=== PATIENT | female | born 1965 | race Caucasian/White ===

== ENCOUNTER 2016-12-31 10:56 | Emergency (ER) | payer MEDICARE, OTHER ==
[2016-12-31 11:08] VITALS: RESP 18
--- NOTE | 2016-12-31 11:20 | ED ---
General Adult HPI - General Chief complaint: Abdominal Pain Stated complaint: Preg? Time Seen by Provider: 12/31/16 11:05 Source: patient, RN notes reviewed Mode of arrival: ambulatory Limitations: no limitations - History of Present Illness Initial comments: this is a 51-year-old female who presents emergency Department because some discharge after coughing yesterday. Patient states about 9:00 last night out of the blue she just had a coughing fit in one the coughing got really bad she felt some fluid that she thought might have come out of her vagina. Patient states she checked in the fluid was yellow in color there was no blood and it hasn't happened since. Patient also states she has not coughed since. Patient states she has no difficulty breathing no chest pain. Patient states it was a random coughing fit and she's not sure why it occurred. Patient is here today because she is concerned about what they yellow fluid might have been. Patient doesn't think it was urine but she's not sure. Patient denies any abdominal pain. Patient denies any dysuria hematuria urinary frequency. Patient denies any recent fever or chills. Patient denies any back pain. - Related Data Home Medications Medication Instructions Recorded Confirmed ARIPiprazole [Abilify Maintena] 300 mg IM Q28D 12/31/16 12/31/16 Fenofibrate Nanocrystallized 145 mg PO DAILY 12/31/16 12/31/16 [Fenofibrate] Mirtazapine [Remeron] 15 mg PO HS 12/31/16 12/31/16 Simvastatin [Zocor] 20 mg PO HS 12/31/16 12/31/16 Trihexyphenidyl HCl 5 mg PO DAILY 12/31/16 12/31/16 Allergies Allergy/AdvReac Type Severity Reaction Status Date / Time No Known Allergies Allergy Verified 12/31/16 11:46 Review of Systems ROS Statement: Those systems with pertinent positive or pertinent negative responses have been documented in the HPI. ROS Other: All systems not noted in ROS Statement are negative. Past Medical History Past Medical History: Hyperlipidemia Additional Past Medical History / Comment(s): tremors History of Any Multi-Drug Resistant Organisms: None Reported Past Surgical History: Cholecystectomy, Orthopedic Surgery, Tubal Ligation Additional Past Surgical History / Comment(s): knee Past Psychological History: Schizophrenia Smoking Status: Current every day smoker Past Alcohol Use History: None Reported Past Drug Use History: None Reported General Exam - General Exam Comments Initial Comments: GENERAL: Patient is well-developed and well-nourished. Patient is nontoxic and well- hydrated and is in no acute distress. ENT: Neck is soft and supple. No significant lymphadenopathy is noted. Oropharynx is clear. Moist mucous membranes. Neck has full range of motion without eliciting any pain. EYES: The sclera were anicteric and conjunctiva were pink and moist. Extraocular movements were intact and pupils were equal round and reactive to light. Eyelids were unremarkable. PULMONARY: Unlabored respirations. Good breath sounds bilaterally. No audible rales rhonchi or wheezing was noted. CARDIOVASCULAR: There is a regular rate and rhythm without any murmurs gallops or rubs. ABDOMEN: Soft and nontender with normal bowel sounds. No palpable organomegaly was noted. There is no palpable pulsatile mass. Genitalia Speculum exam as well as bimanual exam were both normal SKIN: Skin is clear with no lesions or rashes and otherwise unremarkable. NEUROLOGIC: Patient is alert and oriented x3. Cranial nerves II through XII are grossly intact. Motor and sensory are also intact. Normal speech, volume and content. Symmetrical smile. MUSCULOSKELETAL: Normal extremities with adequate strength and full range of motion. No lower extremity swelling or edema. No calf tenderness. LYMPHATICS: No significant lymphadenopathy is noted PSYCHIATRIC: Normal psychiatric evaluation. Normal interpersonal interactions appears functionally intact in deals appropriately with others. No signs of depression. No signs of anxiety. Limitations: no limitations Course Vital Signs 12/31/16 11:03 Temperature 97.9 F Pulse Rate 92 Respiratory 18 Rate Blood Pressure 136/79 O2 Sat by Pulse 95 Oximetry Medical Decision Making - Medical Decision Making I discussed the case with the patient and she did agree that it could've possibly been urine from her bladder but it shocked her so much that her first shot was vaginal discharge. She states she's never happened before. - Lab Data Lab Results 12/31/16 12/31/16 Range/Units 11:35 11:35 Urine Color Yellow Urine Appearance Cloudy H (Clear) Urine pH 5.5 (5.0-8.0) Ur Specific [place] 1.010 (1.001-1.035) Urine Protein Trace H (Negative) Urine Glucose (UA) 4+ H (Negative) Urine Ketones Negative (Negative) Urine Blood Negative (Negative) Urine Nitrite Negative (Negative) Urine Bilirubin Negative (Negative) Urine Urobilinogen 6.0 (<2.0) mg/dL Ur Leukocyte Esterase Moderate H (Negative) Urine WBC 15 H (0-5) /hpf Ur Squamous Epith Cells 14 H (0-4) /hpf Urine Bacteria Rare H (None) /hpf Hyaline Casts 1 (0-2) /lpf Urine HCG, Qual Not Detected (Not Detectd) Disposition Clinical Impression: Urinary incontinence, Hyperglycemia Disposition: HOME SELF-CARE Instructions: Urinary Incontinence (ED), Hyperglycemia, Non-Diabetic (ED) Additional Instructions: Patient is to follow-up as soon as possible with her physician for her elevated glucose. Referrals: Qi Tovar MD [Primary Care Provider] - 1-2 days Time of Disposition: 12:12
[2016-12-31 11:46] LABS: Appearance,Urine Cloudy (Clear); Bacteria,Urine Rare /hpf; Bilirubin,Urine Negative (Negative); Glucose,Urine (UA) 4+ (Negative); Ketones,Urine Negative (Negative); Leukocyte Esterase,Urine Moderate (Negative); Nitrite,Urine Negative (Negative); PH, Urine 5.5 (5.0-8.0); Particle Count 2180; Protein,Urine Trace (Negative); Squamous Epithelial Cell,Urine 14 /hpf (0-4); UA Billing (MACRO vs. MICRO) MICRO; WBC,Urine 15 /hpf (0-5)
[2016-12-31 12:30] LABS: Glucose,Whole Blood 246 mg/dL (75-99)
[2016-12-31 12:33] VITALS: BP 139/73; PULSE 83; TEMP 97.7
== END 2016-12-31 12:38 | disposition home or self-care (01) ==
LOC: EC 10:56
DX: R32 Unspecified urinary incontinence (principal); R73.9 Hyperglycemia, unspecified; F20.9 Schizophrenia, unspecified; E78.5 Hyperlipidemia, unspecified; F17.200 Nicotine dependence, unspecified, uncomplicated; Z90.49 Acquired absence of other specified parts of digestive tract; Z79.899 Other long term (current) drug therapy
CPT/HCPCS: 36415; 81001; 81025; 99284

== ENCOUNTER → 2019-11-11 | Outpatient (CLI) | payer MEDICARE, OTHER ==
[2019-11-11 20:22] LABS: African American GFR (CKD) 85.8 (60.0-200.0); Albumin 4.4 g/dL (3.80-4.90); Albumin/Globulin Ratio 1.33 (1.60-3.17); Anion Gap 3.6 mmol/L (4.00-12.00); BUN/Creat Ratio 13.33 Ratio (12.00-20.00); Calcium 9.8 mg/dL (8.7-10.3); Carbon Dioxide 27.4 mmol/L (21.6-31.8); Chol/HDL Ratio 5.85; Globulin 3.3 g/dL (1.6-3.3); LDL Cholesterol,Calculated 70.6 mg/dL (0.0-131.0); Potassium 4.5 mmol/L (3.5-5.5); Total Protein 7.7 g/dL (6.2-8.2); VLDL Calculation 55.4 mg/dL (5.00-40.00)
[2019-11-11 20:51] LABS: Hemoglobin A1C 5.2 % (4.0-6.0)
[2019-11-13 04:53] LABS: Hepatitis A Antibody IgM Non-Reactive (Non-Reactive); Hepatitis B Core IgM Non-Reactive (Non-Reactive); Hepatitis B Surface Antigen Non-Reactive (Non-Reactive); Hepatitis C IgG Antibody Non-Reactive (Non-Reactive)
== END | disposition home or self-care (01) ==
LOC: LABWHC1 11:35
PROVIDERS: ATTEND Internal Medicine
DX: E11.9 Type 2 diabetes mellitus without complications (principal); E78.5 Hyperlipidemia, unspecified
CPT/HCPCS: 36415; 80053; 80061; 80074; 83036

== ENCOUNTER → 2020-10-11 | Outpatient (CLI) | payer MEDICARE, OTHER ==
--- NOTE | 2020-10-11 12:12 | MM ---
Reason for exam: clinical finding. Indicated problem(s): lump or thickening in the left breast. Physical Findings: Nurse Summary: 3cm nodule in the left breast at 3 o'clock (nurse mj). MG 3D Diag Mammo W/Cad WADE Bilateral CC and MLO view(s) were taken. The breast tissue is heterogeneously dense. This may lower the sensitivity of mammography. Increased density upper outer quadrant right breast. Pleomorphic calcificaitons and spiculated mass 1.6cm and 5.4cm from nipple. These results were verbally communicated with the patient and result sheet given to the patient on 10/11/20. ASSESSMENT: Incomplete: need additional imaging evaluation, BI-RAD 0 RECOMMENDATION: Ultrasound of both breasts. Manage patient on a clinical basis.
--- NOTE | 2020-10-11 12:16 | USB ---
Reason for exam: additional evaluation requested from abnormal screening. US Breast BILAT Right complete breast ultrasound includes all four quadrants, the retroareolar region and axilla. Finding demonstrates a 0.6 x 0.4 x 0.6cm cystic cluster at 2 o'clock and a 0.7 x 0.6 x 0.6cm lesion with duct at 7-8 o'clock for which a biopsy is recommended. Left complete breast ultrasound includes all four quadrants, the retroareolar region and axilla. Finding demonstrates a 2.5 x 1.6 x 2.6cm irregular, hypoehcoic lesion at 3 o'clock, debris with duct at the posterior nipple and a 2.1 x 1.4 x 1.9cm lymph node at the axilla. Biopsy recommended. These results were verbally communicated with the patient and result sheet given to the patient on 10/11/20. ASSESSMENT: Highly suggestive of malignancy, BI-RAD 5 Suspicious, BI-RAD 4 abnormality in the right breast. Left breast finding is highly suggestive of malignancy, BI-RAD 5. RECOMMENDATION: Ultrasound core biopsy of both breasts. Called Dr. French's office with mammographic findings and has scheduled an appointment for the patient for 10/19/20 at 7:[address] Eli. Biopsy scheduled for 10/23/20 at 1:00. PRELIMINARY REPORT CALLED AND FAXED TO DR. ELI ON 10/11/20.
== END | disposition home or self-care (01) ==
LOC: RADMAMWWP 08:04
PROVIDERS: ATTEND Internal Medicine
DX: N63.20 Unspecified lump in the left breast, unspecified quadrant (principal); N63.11 Unspecified lump in the right breast, upper outer quadrant
CPT/HCPCS: 77066; 76641; G0279; 77062

== ENCOUNTER → 2020-10-19 | Outpatient (CLI) | payer MEDICARE, OTHER ==
[2020-10-19 07:18] VITALS: BP 133/86; PULSE 72; RESP 18; TEMP 98.2
--- NOTE | 2020-10-19 07:45 | P.GSHP ---
History of Present Illness H&P Date: 10/19/20 Chief Complaint: Bilateral radiographic abnormality of the breast Nancy is a 54-year-old white female seen in consultation for Dr. Moore regarding bilateral radiographic abnormality of the breast. She states she felt a mass in her left breast approximately 1 month ago. It was not painful. It has not changed in size. She had a bilateral mammogram performed on 5520. This showed an area of increased density upper quadrant right breast as well as pleomorphic calcifications in the spiculated mass in the left breast approximately 5.4 cm from the nipple. Bilateral breast ultrasounds were performed. Right breast ultrasound 0.7 x 0.6 cm lesion at the 7 to 8 o'clock position for which a biopsy was recommended Left breast 2.5 x 1.6 cm irregular lesion at 3:00 for which ultrasound-guided core biopsy was recommended as well as enlarged lymph nodes for which biopsy is recommended. She has never had any procedures on her breast before. She does not complain of any trauma or infection in her breast. Caffeine: one pop/day nicotine: 1 PPD/30 years chocolate: occasional Family history: none Hormonal history: Menarche: 14 , breast fed: no, age at first : 24 no periods for 7 years hormones: none BCP: none Surgical history: Right knee Gallbladder Medical history: Schizophrenia Diabetes/on metformin High cholesterol Social History: Nicotine: One pack per day for 30 years Alcohol: Negative Drugs: Negative - Constitutional Constitutional: Denies chills, Denies fever - EENT Eyes: denies blurred vision, denies pain Ears: deny: decreased hearing, tinnitus Ears, nose, mouth and throat: Denies headache, Denies sore throat - Breasts Breasts: bilateral: as per HPI - Cardiovascular Cardiovascular: Denies chest pain, Denies shortness of breath - Respiratory Comment: smoker Respiratory: Denies cough, Denies 7 - Gastrointestinal Gastrointestinal: Denies abdominal pain, Denies diarrhea, Denies nausea, Denies vomiting - Genitourinary (Female) Genitourinary: Denies dysuria, Denies hematuria - Menstruation Menstruation: Reports postmenopausal - Musculoskeletal Musculoskeletal: Denies myalgias - Integumentary Integumentary: Denies pruritus, Denies rash - Neurological Neurological: Denies numbness, Denies weakness - Psychiatric Comment: Schizophrenia Psychiatric: Denies anxiety, Denies depression - Endocrine Comment: diabetes Endocrine: Denies fatigue, Denies weight change - Hematologic/Lymphatic Comment: none - Allergic/Immunologic Allergic/Immunologic: Reports as per HPI Past Medical History Past Medical History: Diabetes Mellitus, Hyperlipidemia Additional Past Medical History / Comment(s): tremors History of Any Multi-Drug Resistant Organisms: None Reported Past Surgical History: Cholecystectomy, Orthopedic Surgery, Tubal Ligation Additional Past Surgical History / Comment(s): knee Past Psychological History: Anxiety, Schizophrenia Past Alcohol Use History: None Reported Past Drug Use History: None Reported Medications and Allergies Home Medications Medication Instructions Recorded Confirmed Type ARIPiprazole [Abilify Maintena] 300 mg IM Q28D 12/31/16 10/19/20 History Fenofibrate Nanocrystallized 145 mg PO DAILY 12/31/16 10/19/20 History [Fenofibrate] Simvastatin [Zocor] 20 mg PO HS 12/31/16 10/19/20 History Trihexyphenidyl HCl 2 mg PO BID 12/31/16 10/19/20 History metFORMIN HCL 500 mg PO DAILY 10/16/20 10/19/20 History traZODone HCL 100 mg PO HS 10/16/20 10/19/20 History Allergies Allergy/AdvReac Type Severity Reaction Status Date / Time No Known Allergies Allergy Verified 10/19/20 07:15 Surgical - Exam BMI 34.4 - General no distress - Eyes normal ocular movement - ENT normal pinna, normal nares - Neck no masses, trachea midline - Respiratory normal expansion, normal respiratory effort, clear to auscultation - Cardiovascular Rhythm: regular Heart Sounds: normal: S1, S2 - Abdomen Abdomen: soft, non tender, no guarding, no rigid, no rebound - Integumentary normal turgor - Neurologic no disoriented, no combative - Musculoskeletal normal gait - Psychiatric oriented to time, oriented to person, oriented to place, speech is normal, memory intact breast exam: BRA: 38B inspection: Left nipple slightly retracted, grade 2 ptosis Palpation: Right breast: Multi-positional exam very dense breast with no dominant masses or nodules of concern, fibrocystic changes Right axilla: No adenopathy of concern Left breast: Multi-positional exam very dense breast approximately 3 x 3 cm mass at the 3 o'clock position fibrocystic changes Left axilla: Positive adenopathy which is mobile Patient did receive COVID vaccination in left arm approximately 2 weeks ago ( only one shot given) Results Mammogram and ultrasound reviewed in person and discussed with Dr. Santana from radiology Assessment and Plan Assessment: Impression: 1. Bilateral mammographic abnormality of the breast/mobile mass left breast and axillary adenopathy left 2. Schizophrenia 3. Diabetes 4. High cholesterol 5. One pack per day smoker for approximately 30 years 6. BMI 34.4 Plan: 1. Ultrasound-guided core biopsy left breast mass, left axillary node, right breast Mass. 2. Encouraged stop smoking 3. Follow-up after ultrasound-guided core biopsy Cc: Dr. French Patient and benefits of the ultrasound core biopsies were discussed with the patient. Risks include but are not limited to bleeding, infection, reaction to the anesthetic. Additionally if the findings were discordant it could require resection in the operating room. The left breast lesion will be removed no matter what the findings on the ultrasound core biopsy are. However, if this is positive she may benefit from neoadjuvant chemotherapy.
== END ==
LOC: WWCWWP 07:03
PROVIDERS: ATTEND Surgery
DX: N63.20 Unspecified lump in the left breast, unspecified quadrant (principal); E78.00 Pure hypercholesterolemia, unspecified; E11.9 Type 2 diabetes mellitus without complications; F17.210 Nicotine dependence, cigarettes, uncomplicated; E78.5 Hyperlipidemia, unspecified; F41.9 Anxiety disorder, unspecified; F20.9 Schizophrenia, unspecified; Z68.34 Body mass index [BMI] 34.0-34.9, adult; Z79.84 Long term (current) use of oral hypoglycemic drugs

== ENCOUNTER → 2020-10-23 | Day surgery (SDC) | payer MEDICARE, OTHER ==
[2020-10-23 12:07] VITALS: RESP 16; TEMP 98.1
[2020-10-23 14:34] VITALS: BP 120/74; PULSE 80
--- NOTE | 2020-10-24 10:22 | USB ---
US Discontinued Breast Bx RT EXAMINATION TYPE: US biopsy breast VAD LT DATE OF EXAM: 10/23/2020 CLINICAL HISTORY: R92.8 Abnormal Imaging. Abnormal mass at 3:00, in zone a and enlarged abnormal-appearing left axillary lymph node TECHNIQUE: Ultrasound guided core biopsy of left axilla and left breast. COMPARISON: NONE FINDINGS: The procedure of ultrasound guided core biopsy was explained to the patient. Benefits, alternatives, and risks were discussed. An informed consent was then obtained. The patient was placed in supine positioning for imaging and for the procedure. The overlying skin was prepped and draped in usual sterile fashion. Lidocaine buffered with bicarbonate was used as anesthetic into the skin and subcutaneous tissue up to area of concern in the left breast. Skin anatoly was made with surgical scalpel. Under ultrasound guidance, a 12-gauge vacuum assisted core biopsy device was used to obtain 3 core biopsy samples. Following this, a biopsy clip was left breast lesion. Another enlarged abnormal-appearing lymph node was located in the left axilla. Under ultrasound guidance a Temno device was used to obtain 3 core biopsy samples. The patient tolerated the procedures well without any immediate complication. The patient was kept in the radiology department for short stay after the procedure and then discharged home in stable condition. Post procedural true lateral and CC of the left breast were obtained with biopsy marker clip at appropriate position at 3:00 in zone A. The left axillary clip is not visualized. The retroareolar biopsies of each breast were canceled. There are dilated retroareolar ducts with debris. No color-flow is seen within the ducts. Due to high likelihood of breast MRI following this biopsy, biopsies of these areas were not obtained. IMPRESSION: 1. Successful, uncomplicated ultrasound guided core left breast biopsy and left axillary node biopsy. Postbiopsy mammogram shows a left biopsy marker clip in appropriate position. Left axillary clip is not visualized. Full pathology results to follow. 2. Bilateral retroareolar ductal dilatation with debris and/or hemorrhage. No color flow is seen. These areas were not biopsied due to high likelihood of breast MRI to follow. Pathology Results: Malignant A. LEFT BREAST, 3:00, ULTRASOUND GUIDED CORE BIOPSY: Invasive high grade ductal carcinoma (Grade 3) and focal high grade DCIS. See Surgical Pathology Cancer Case Summary and Comment. B. LEFT AXILLA, CORE BIOPSY: Invasive high grade ductal carcinoma (Grade 3). See Surgical Pathology Cancer Case Summary and Comment. Recommendation Surgical consult of the left breast. MTDD
--- NOTE | 2020-10-24 10:23 | MM ---
Reason for exam: additional evaluation requested from abnormal screening. Last mammogram was performed less than 1 month ago. History: US discontinued breast bx RT of the right breast, October 23, 2020. MG Diagnostic Mammo LT Wo CAD CC and LM view(s) were taken of the left breast. Prior study comparison: October 11, 2020, bilateral MG 3d diag mammo w/cad WADE. ASSESSMENT: Post procedure mammogram for marker placement RECOMMENDATION: Surgical consult of the left breast. MEIR
== END ==
LOC: RADUSWWP 11:45
PROVIDERS: ATTEND Surgery
DX: C50.912 Malignant neoplasm of unspecified site of left female breast (principal); Z17.0 Estrogen receptor positive status [ER+]
CPT/HCPCS: 88305; 88342; 88341; 77065; 38505; 19083; 76641; A4648; J2001; 19084

== ENCOUNTER → 2020-11-02 | Outpatient (CLI) | payer MEDICARE, OTHER ==
[2020-11-02 12:18] VITALS: BP 136/79; PULSE 66; RESP 18; TEMP 97.9
--- NOTE | 2020-11-02 13:04 | P.PN ---
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 Both revealed invasive high- grade ductal carcinoma. A third area was recommended for biopsy in the right breast which was canceled by radiology. Instead it was recommended that she undergo a breast MRI. I reviewed the patient's pathology with the patient. She is a T2 N1 M0 ER+UT+ HER-2-G 3 tumor which is a stage IIB. She would like to have genetic testing done. Additionally the tumor will be sent for Oncotype. This is very possibly going to be high as this is a high-grade tumor with a positive lymph node. She had no complaints related to the biopsy. We have recommended the followin. genetic testing 2. Oncotype evaluation of the tumor although with a high-grade tumor and positive lymph node 3. Presentation of case at tumor board 4. MRI as 2 lesions in the left were sampled but the one in the right was not sampled and recommended by radiology Risks and benefits of different surgical procedures were discussed with the patient. Final recommendation will be when all of the information is available. Encounter: 40 minutes, time spent in review of medical records and counseling. CC: Dr. French Objective - Vital Signs Vital signs: Vital Signs Temp 97.9 F 11/02/20 12:12 Pulse 66 11/02/20 12:12 Resp 18 11/02/20 12:12 BP 136/79 11/02/20 12:12 Pulse Ox 97 11/02/20 12:12 Intake & Output 11/01/20 11/02/20 11/02/20 18:59 06:59 18:59 Weight 94.347 kg
== END ==
LOC: WWCWWP 11:39
PROVIDERS: ATTEND Surgery
DX: C50.912 Malignant neoplasm of unspecified site of left female breast (principal); F17.200 Nicotine dependence, unspecified, uncomplicated

== ENCOUNTER → 2020-11-17 | Outpatient (CLI) | payer MEDICARE, OTHER ==
--- NOTE | 2020-11-20 05:36 | PE ---
EXAMINATION TYPE: PET CT fusion skull to thigh DATE OF EXAM: 11/17/2020 COMPARISON: Bilateral breast ultrasound October 11, 2020 HISTORY: Left-sided breast cancer diagnosed on biopsy october 23. TECHNIQUE: Following the intravenous administration of 12.91 mCi of F-18 FDG, whole body images are performed from the skull base to the midthigh. Images are reviewed on the computer in the coronal, a xial, and sagittal planes. Reconstructed rotating images are created on independent workstation and reviewed on the computer. A localization and attenuation correction CT is performed in conjunction with the PET scan. Blood glucose level equals 112. SCAN: Initial Scan FINDINGS: SKULL BASE AND NECK: No areas of abnormal hypermetabolic uptake. CHEST, MEDIASTINUM, AND HILAR REGION: Corresponding to ultrasound there is a 2.6 x 2.1 cm hypermetabo lic mass lateral aspect left breast axial image 107, max SUV is 4.84. Corresponding to ultrasound there is enlarged hypermetabolic 2.2 x 1.3 cm inferior left axillary node axial image 88, max SUV is 3.67. No areas of abnormal metabolic uptake in the right breast. There are 2 prominent subcentimeter hyperm etabolic right axillary lymph nodes, largest measures 1.4 x 1.4 cm axial image 77, max SUV is 3.22. No additional areas of abnormal hypermetabolic uptake. ABDOMEN AND PELVIS: Normal excretion. Nonspecific distal bowel uptake. Suspected misregistration at l evel of cervix. OSSEOUS STRUCTURES: No areas of abnormal hypermetabolic uptake. OTHER CT: Mild cardiomegaly. Liver diffusely low-density consistent with fatty infiltration. Cholecystectomy clips. Anteverted uterus. There is 3.2 cm low dense right ovarian mass probable thin-walled cyst. There is a larger 5.7 cm hyperdense left pelvic lesion that is ametabolic. Advise pelvic ultrasound to further evaluate and characterize. IMPRESSION: 1. Redemonstration of biopsy proven malignancy in left breast and axilla. Nonspecific right axillary lymph nodes. No additional metastatic disease clearly seen. 2. There is 5.7 cm left adnexal or ovarian hyperdense lesion, nonspecific. Advise pelvic ultrasound f ollow-up to further evaluate.
== END | disposition home or self-care (01) ==
LOC: RADPETMAIN 17:00
PROVIDERS: ATTEND Surgery
DX: C50.912 Malignant neoplasm of unspecified site of left female breast (principal)
CPT/HCPCS: 78815; A9552

== ENCOUNTER → 2020-11-22 | Outpatient (CLI) | payer MEDICARE, OTHER ==
--- NOTE | 2020-11-22 11:01 | ECHOF ---
Referral Reason:Z01.818 pre chemo, N85.8 ovarian cyst MEASUREMENTS -------- HEIGHT: 162.6 cm WEIGHT: 96.2 kg BP: RVIDd: 3.3 cm (< 3.3) IVSd: 1.5 cm (0.6 - 1.1) LVIDd: 3.9 cm (3.9 - 5.3) LVPWd: 1.3 cm (0.6 - 1.1) IVSs: 1.7 cm LVIDs: 2.6 cm LVPWs: 1.8 cm LAESV Index (A-L): 19.88 ml/m Ao Diam: 2.7 cm (2.0 - 3.7) AV Cusp: 1.8 cm (1.5 - 2.6) LA Diam: 3.6 cm (2.7 - 3.8) MV EXCURSION: 18.739 mm (> 18.000) MV EF SLOPE: 43 mm/s (70 - 150) EPSS: 0.4 cm MV E Wallace: 0.76 m/s MV DecT: 245 ms MV A Wallace: 0.97 m/s MV E/A Ratio: 0.78 RAP: 5.00 mmHg RVSP: 32.61 mmHg FINDINGS -------- Sinus rhythm. This was a technically adequate study. The left ventricular size is normal. There is moderate concentric left ventricular hypertrophy. O verall left ventricular systolic function is normal with, an EF between 55 - 60 %. The diastolic fi lling pattern is normal for the age of the patient 14.35. The right ventricle is mildly enlarged. The left atrial size is normal. The right atrial size is normal. Interatrial and interventricular septum intact. The aortic valve is trileaflet, and appears structurally normal. No aortic stenosis or regurgitation. The mitral valve is normal. No mitral regurgitation. Mild tricuspid regurgitation present. Right ventricular systolic pressure is normal at < 35 mmHg. The right ventricular systolic pressure, as measured by Doppler, is 32.61mmHg. Trace/mild (physiologic) pulmonic regurgitation. The aortic root size is normal. IVC Not well visulized. There is no pericardial effusion. CONCLUSIONS -------- 1. There is moderate concentric left ventricular hypertrophy. 2. Overall left ventricular systolic function is normal with, an EF between 55 - 60 %. 3. The right ventricle is mildly enlarged. 4. The left atrial size is normal. 5. The aortic valve is trileaflet, and appears structurally normal. No aortic stenosis or regurgitati on. 6. Mild tricuspid regurgitation present. 7. Trace/mild (physiologic) pulmonic regurgitation. 8. There is no pericardial effusion. CONTRACT CONSULTANT: Jessie Ferrer RDCS
== END | disposition home or self-care (01) ==
LOC: RADECHMAIN 08:58
PROVIDERS: ATTEND Internal Medicine Hematology & Oncology
DX: Z01.810 Encounter for preprocedural cardiovascular examination (principal); I07.1 Rheumatic tricuspid insufficiency
CPT/HCPCS: 93306

== ENCOUNTER → 2020-11-23 | Outpatient (CLI) | payer MEDICARE, OTHER | END | disposition home or self-care (01) | LOC: RADMRIMAIN 08:56 | PROVIDERS: ATTEND Surgery | DX: Z53.9 Procedure and treatment not carried out, unspecified reason (principal) ==

== ENCOUNTER → 2020-12-01 | Outpatient (CLI) | payer MEDICARE, OTHER ==
--- NOTE | 2020-12-01 15:27 | US ---
EXAMINATION TYPE: US pelvis complete transvag DATE OF EXAM: 12/01/2020 COMPARISON: PET scan 11/17/2020 CLINICAL HISTORY: N85.8 OVARIAN CYST. TECHNIQUE: Transvaginal (TV) and Transabdominal (TA) . Date of LMP: patient states no cycles for one year. EXAM MEASUREMENTS: Uterus: 9.7 x 3.8 x 4.6 cm Endometrial Stripe: 0.4 cm Right Ovary: 4.9 x 3.1 x 3.1 cm Left Ovary: 6.5 x 2.5 x 3.8 cm 1. Uterus: Anteverted heterogeneous echotexture 2. Endometrium: wnl 3. Right Ovary: 3.3 x 3.2 x 3.2 cm cyst 4. Left Ovary: 5.4 x 3.1 x 3.6 cm cyst Spectral, color and waveform doppler imaging shows good arterial and venous flow within the ovaries ; there is no evidence for ovarian torsion. 5. Bilateral Adnexa: wnl 6. Posterior cul-de-sac: no free fluid IMPRESSION: Bilateral ovarian cysts measure up to 3.3 cm on the right and 5.4 cm on the left.
== END | disposition home or self-care (01) ==
LOC: RADUSWWP 14:37
PROVIDERS: ATTEND Internal Medicine Hematology & Oncology
DX: N83.202 Unspecified ovarian cyst, left side (principal); N83.201 Unspecified ovarian cyst, right side
CPT/HCPCS: 76830; 76856

== ENCOUNTER → 2021-02-22 | Outpatient (CLI) | payer MEDICARE, OTHER ==
[2021-02-22 15:14] VITALS: BP 118/75; PULSE 84; RESP 16; TEMP 98.6
--- NOTE | 2021-02-22 15:44 | P.PN ---
Subjective Progress Note Date: 02/22/21 Principal diagnosis: T2 N1 M0 ER + SC+ HER-2 negative G3 invasive ductal carcinoma stage IIB left breast Nancy is a 55-year-old white female seen in consultation for Dr. French regarding bilateral radiographic abnormality of the breast. She states she felt a mass in her left breast approximately 1 month prior. It was not painful. It had not changed in size. She had a bilateral mammogram performed on 55. This showed an area of increased density upper quadrant right breast as well as pleomorphic calcifications in the spiculated mass in the left breast approximately 5.4 cm from the nipple. Bilateral breast ultrasounds were performed. Right breast ultrasound 0.7 x 0.6 cm lesion at the 7 to 8 o'clock position for which a biopsy was recommended Left breast 2.5 x 1.6 cm irregular lesion at 3:00 for which ultrasound-guided core biopsy was recommended as well as enlarged lymph nodes for which biopsy iswas recommended. She had never had any procedures on her breast before. She did not complain of any trauma or infection in her breast. She underwent an ultrasound-guided core biopsy of 2 areas of concern in the left breast and 56921. Both revealed invasive high-grade ductal carcinoma. The third area was recommended for biopsy in the right breast which was canceled by radiology. An MRI of the breast was recommended which was not performed[place] [address]. This revealed biopsy-proven malignancy in the left breast and axilla. Nonspecific right axillary lymph nodes no additional metastatic disease seen. There was a 5.7 cm left adnexal or ovarian lesion nonspecific. Pelvic ultrasound was recommended. This was performed on 018 521. This revealed bilateral ovarian cyst. Her case was presented at tumor board on 6120. Recommendations included PET scan MRI of the breast neoadjuvant chemotherapy. She had an Oncotype DX performed and her recurrence score was 31. She started chemotherapy on December 15 to January 26 she received Adriamycin/Cytoxan, and has now transitioned to Taxol on 02-08-21. She will finish this on April 26. Caffeine: one pop/day nicotine: 1 PPD/30 years chocolate: occasional Family history: none Hormonal history: Menarche: 14 , breast fed: no, age at first : 24 no periods for 7 years hormones: none BCP: none Surgical history: Right knee Gallbladder core biopsy lwft breast port a cath placed Medical history: Schizophrenia Diabetes/on metformin High cholesterol Social History: Nicotine: 1/2 pack per day for 30 years Alcohol: Negative Drugs: Negative - Constitutional Constitutional: Denies chills, Denies fever - EENT Eyes: denies blurred vision, denies pain Ears: deny: decreased hearing, tinnitus Ears, nose, mouth and throat: Denies headache, Denies sore throat - Breasts Breasts: bilateral: as per HPI - Cardiovascular Cardiovascular: Denies chest pain, Denies shortness of breath - Respiratory Comment: smoker Respiratory: Denies cough - Gastrointestinal Gastrointestinal: Denies abdominal pain, Denies diarrhea, Denies nausea, Denies vomiting - Genitourinary (Female) Genitourinary: Denies dysuria, Denies hematuria - Menstruation Menstruation: Reports postmenopausal - Musculoskeletal Musculoskeletal: Denies myalgias - Integumentary Integumentary: Denies pruritus, Denies rash - Neurological Neurological: Denies numbness, Denies weakness - Psychiatric Comment: Schizophrenia Psychiatric: Denies anxiety, Denies depression - Endocrine Comment: diabetes Endocrine: Denies fatigue, Denies weight change - Hematologic/Lymphatic Comment: none - Allergic/Immunologic Allergic/Immunologic: Reports as per HPI Objective - Vital Signs Vital signs: Vital Signs Temp 98.6 F 02/22/21 15:08 Pulse 84 02/22/21 15:08 Resp 16 02/22/21 15:08 BP 118/75 02/22/21 15:08 Pulse Ox 97 02/22/21 15:08 Intake & Output 02/21/21 02/22/21 02/22/21 18:59 06:59 18:59 Weight 81.647 kg - Exam BMI 30.9 - Constitutional Constitutional Comment(s): alopecia General appearance: Present: cooperative - EENT Eyes: Present: EOMI ENT: Present: hearing grossly normal - Neck Neck: Present: normal ROM - Respiratory Respiratory: bilateral: CTA - Cardiovascular Rhythm: regular Heart sounds: normal: S1, S2 - Gastrointestinal General gastrointestinal: Present: soft - Integumentary Integumentary: Present: normal turgor - Musculoskeletal Musculoskeletal: Present: gait normal - Psychiatric Psychiatric: Present: A&O x's 3, appropriate affect, intact judgment & insight - Additional findings Additional findings: Breast Exam: BRA: 38B Inspection: Bilateral grade 2 ptosis Palpation: Right breast: Multiple positional exam dense breast tissue no dominant masses or nodules of concern Right axilla: No adenopathy of concern Left breast: Fullness upper-outer quadrant area extending up under the nipple areolar complex appears to be less prominent than in the past (prior to chemotherapy 3 x 3 cm mass in the 3 o'clock position of the left breast) Left axilla: No adenopathy of concern; radiochemotherapy palpable adenopathy noted Assessment and Plan Assessment: Impression: Schizophrenia Diabetes/on metformin High cholesterol Left breast stage IIB underwent neoadjuvant chemotherapy, patient has finished Adriamycin/Cytoxan and is now taking Taxol Plan: 1. Patient was recommended to undergo an MRI to evaluate further the right breast this is going to be scheduled when she finishes her chemotherapy 2. Plan for surgical intervention after completion of chemotherapy 3. We'll see patient approximately 3 weeks prior to completion of her chemotherapy 4. clearance for surgery from Dr. French 5. Patient at the time of surgery will undergo needle localization of the lymph node which had been positive on the left side, sentinel node biopsy, possible axillary node dissection, and left mastectomy CC: Dr. French
== END | disposition home or self-care (01) ==
LOC: WWCWWP 14:45
PROVIDERS: ATTEND Surgery
DX: Z53.9 Procedure and treatment not carried out, unspecified reason (principal)

== ENCOUNTER 2021-04-12 12:32 | Emergency (ER) | payer MEDICARE, OTHER ==
[2021-04-12 12:52] VITALS: BP 117/59; PULSE 102; RESP 18; TEMP 98.7
--- NOTE | 2021-04-12 14:01 | ED ---
Recheck HPI - General Chief Complaint: Recheck/Abnormal Lab/Rx Stated Complaint: Irregular US Time Seen by Provider: 04/12/21 12:53 Source: patient, RN notes reviewed, old records reviewed Mode of arrival: ambulatory Limitations: no limitations - History of Present Illness Initial Comments: Patient is a 55-year-old female, currently undergoing chemo treatment for breast cancer, presenting to the emergency department with concerns of a DVT to her left leg. She was given an order for an outpatient ultrasound and they sent her to the ER after the results. She has been having discomfort in her left lower leg over the past couple days. She is not on blood thinners. She denies any chest pain or short of breath, no congestion, no cough. She denies any abdominal pain. She has no further complaints at this time. Her vitals are stable upon arrival. - Related Data Home Medications Medication Instructions Recorded Confirmed ARIPiprazole [Abilify Maintena] 300 mg IM Q28D 12/31/16 04/12/21 Fenofibrate Nanocrystallized 145 mg PO QAM 12/31/16 04/12/21 [Fenofibrate] Simvastatin [Zocor] 20 mg PO HS 12/31/16 04/12/21 metFORMIN HCL 500 mg PO QAM 10/16/20 04/12/21 traZODone HCL 100 mg PO HS 10/16/20 04/12/21 Omeprazole 40 mg PO DAILY 04/12/21 04/12/21 Trihexyphenidyl [Artane] 2 mg PO BID 04/12/21 04/12/21 Previous Rx's Medication Instructions Recorded Rivaroxaban [Xarelto] 15 mg PO BID 21 Days #42 tab 04/12/21 Allergies Allergy/AdvReac Type Severity Reaction Status Date / Time No Known Allergies Allergy Verified 04/12/21 13:56 Review of Systems ROS Statement: Those systems with pertinent positive or pertinent negative responses have been documented in the HPI. ROS Other: All systems not noted in ROS Statement are negative. Past Medical History Past Medical History: Cancer, Diabetes Mellitus, Hyperlipidemia Additional Past Medical History / Comment(s): tremors; 10/23/20 LT breast invasive high grade ductal carcinoma; History of Any Multi-Drug Resistant Organisms: None Reported Past Surgical History: Cholecystectomy, Orthopedic Surgery, Tubal Ligation Additional Past Surgical History / Comment(s): knee; LT lateral breast and LT axilla biopsy 10/23/20 w/invasive high grade ductal carcinoma; Past Anesthesia/Blood Transfusion Reactions: No Reported Reaction Past Psychological History: Anxiety, Schizophrenia Smoking Status: Current every day smoker Past Alcohol Use History: None Reported Past Drug Use History: None Reported General Exam - General Exam Comments Initial Comments: GENERAL: Patient is well-developed and well-nourished. Patient is nontoxic and in no a cute distress. HEAD: Atraumatic, normocephalic. EYES: Pupils equal round and reactive to light, extraocular movements intact, sclera anicteric, conjunctiva are normal. Eyelids were unremarkable. ENT: Moist mucous membranes. LUNGS: Unlabored respirations. Breath sounds clear to auscultation bilaterally and equal. No wheezes rales or rhonchi. HEART: Regular rate and rhythm without murmurs, rubs or gallops. MUSCULOSKELETAL: Patient has some mild swelling noted to the left lower leg, no pain to palpation. She is neurovascular intact. No clubbing or cyanosis. NEUROLOGICAL: Patient is alert and oriented x 3. SKIN: Warm, Dry, normal turgor, no rashes or lesions noted. Limitations: no limitations Course Vital Signs 04/12/21 12:49 Temperature 98.7 F Pulse Rate 102 H Respiratory 18 Rate Blood Pressure 117/59 O2 Sat by Pulse 96 Oximetry Medical Decision Making - Medical Decision Making Patient is a 55-year-old female, currently receiving chemo for breast cancer, presenting for a acute DVT in the left lower leg found on outpatient ultrasound today. She's been having some mild swelling. Ultrasound reveals an acute DVT in the lower left femoral vein extending down to the popliteal vein. She is neurovascular intact, very minimal pain. Patient was already started on Xarelto by her PCP today, I recommended continuing a sinus medication, I will give her a new prescription. She can follow-up with her doctor. She is agreeable to this plan of care. Return parameters were discussed with her and she verbalized understanding. Case discussed with Dr. Flores. Disposition Clinical Impression: Left leg DVT Disposition: HOME SELF-CARE Condition: Stable Instructions (If sedation given, give patient instructions): Deep Vein Thrombosis (ED) Additional Instructions: Please return to the Emergency Department if symptoms worsen or any other concerns. Take blood thinners as prescribed, starting this evening. Please follow-up with your oncologist. Prescriptions: Rivaroxaban [Xarelto] 15 mg PO BID 21 Days #42 tab Is patient prescribed a controlled substance at d/c from ED?: No Referrals: Lizy French MD [Primary Care Provider] - 1-2 days Time of Disposition: 14:01
== END 2021-04-12 14:49 | disposition home or self-care (01) ==
LOC: EC 12:32
DX: I82.402 Acute embolism and thrombosis of unspecified deep veins of left lower extremity (principal); F17.200 Nicotine dependence, unspecified, uncomplicated; E11.9 Type 2 diabetes mellitus without complications; E78.5 Hyperlipidemia, unspecified; Z79.899 Other long term (current) drug therapy; Z79.84 Long term (current) use of oral hypoglycemic drugs
CPT/HCPCS: 99282

== ENCOUNTER → 2021-04-12 | Outpatient (CLI) | payer MEDICARE, OTHER ==
--- NOTE | 2021-04-12 12:32 | US ---
EXAMINATION TYPE: US venous doppler duplex LE LT DATE OF EXAM: 04/12/2021 12:17 PM COMPARISON: NONE CLINICAL HISTORY: 55-year-old female M79.662 PAIN, R22.42 SWELLING. SIDE PERFORMED: Left TECHNIQUE: The lower extremity deep venous system is examined utilizing real time linear array sonog janet with graded compression, doppler sonography and color-flow sonography. FINDINGS: VESSELS IMAGED: Common Femoral Vein Deep Femoral Vein Greater Saphenous Vein * Femoral Vein Popliteal Vein Small Saphenous Vein * Proximal Calf Veins (* superficial vessels) Occlusive thrombus seen in the left lower femoral vein through the popliteal vein. Left Leg: Positive for DVT IMPRESSION: Occlusive, acute DVT identified in the lower left femoral vein extending down to the popliteal vein.
== END | disposition home or self-care (01) ==
LOC: RADUSWWP 11:57
PROVIDERS: ATTEND Internal Medicine
DX: I82.409 Acute embolism and thrombosis of unspecified deep veins of unspecified lower extremity (principal)

== ENCOUNTER → 2021-05-18 | Outpatient (CLI) | payer MEDICARE, OTHER ==
[2021-05-18 12:02] VITALS: BP 125/79; PULSE 88; RESP 16; TEMP 98
--- NOTE | 2021-05-18 12:47 | P.PN ---
Subjective Progress Note Date: 05/18/21 Principal diagnosis: left breast cancer T2 N1 M0 ER + MA+ HER-2 negative G3 invasive ductal carcinoma stage IIB left breast Nancy is a 55-year-old white female seen in consultation for Dr. French regarding radiographic abnormality of the breast. She stated she felt a mass in her left breast approximately 1 month prior. It was not painful. It had not changed in size. She had a bilateral mammogram performed on 55. This showed an area of increased density upper quadrant right breast as well as pleomorphic calcifications in the spiculated mass in the left breast approximately 5.4 cm from the nipple. Bilateral breast ultrasounds were performed. Right breast ultrasound 0.7 x 0.6 cm lesion at the 7 to 8 o'clock position for which a biopsy was recommended Left breast 2.5 x 1.6 cm irregular lesion at 3:00 for which ultrasound-guided core biopsy was recommended as well as enlarged lymph nodes for which biopsy was recommended. She had never had any procedures on her breast before. She did not complain of any trauma or infection in her breast. She underwent an ultrasound-guided core biopsy of 2 areas of concern in the left breast and 29025. Both revealed invasive high-grade ductal carcinoma. The third area was recommended for biopsy in the right breast which was canceled by radiology. An MRI of the breast was recommended which was not performed[place] [address]. This revealed biopsy-proven malignancy in the left breast and axilla. Nonspecific right axillary lymph nodes no additional metastatic disease seen. There was a 5.7 cm left adnexal or ovarian lesion nonspecific. Pelvic ultrasound was recommended. This was performed on 315 521. This revealed bilateral ovarian cyst. Her case was presented at tumor board on 6120. Recommendations included PET scan MRI of the breast neoadjuvant chemotherapy. She had an Oncotype DX performed and her recurrence score was 31. She started chemotherapy on December 15 to January 26 she received Adriamycin/Cytoxan, and has now transitioned to Taxol on 02-08-21. She has to 1 kg sessions for the Taxol. Was diagnosed with a DVT in her left lower extremity on and started on xeralto. Her left breast is very firm, there is a small pustule near the nipple areolar complex from which she states she leaks milky substance. Caffeine: one pop/day nicotine: 1 PPD/30 years chocolate: occasional Family history: none Hormonal history: Menarche: 14 , breast fed: no, age at first : 24 no periods for 7 years hormones: none BCP: none Surgical history: Right knee Gallbladder core biopsy lwft breast port a cath placed Medical history: Schizophrenia Diabetes/on metformin High cholesterol Social History: Nicotine: 1/2 pack per day for 30 years Alcohol: Negative Drugs: Negative - Constitutional Constitutional: Denies chills, Denies fever - EENT Eyes: denies blurred vision, denies pain Ears: deny: decreased hearing, tinnitus Ears, nose, mouth and throat: Denies headache, Denies sore throat - Breasts Breasts: bilateral: as per HPI - Cardiovascular Cardiovascular: Denies chest pain, Denies shortness of breath - Respiratory Comment: smoker Respiratory: Denies cough - Gastrointestinal Gastrointestinal: Denies abdominal pain, Denies diarrhea, Denies nausea, Denies vomiting - Genitourinary (Female) Genitourinary: Denies dysuria, Denies hematuria - Menstruation Menstruation: Reports postmenopausal - Musculoskeletal Musculoskeletal: Denies myalgias - Integumentary Integumentary: Denies pruritus, Denies rash - Neurological Neurological: Denies numbness, Denies weakness - Psychiatric Comment: Schizophrenia Psychiatric: Denies anxiety, Denies depression - Endocrine Comment: diabetes Endocrine: Denies fatigue, Denies weight change - Hematologic/Lymphatic Comment: none - Allergic/Immunologic Allergic/Immunologic: Reports as per HPI Objective - Vital Signs Vital signs: Vital Signs Temp 98.0 F 05/18/21 11:57 Pulse 88 05/18/21 11:57 Resp 16 05/18/21 11:57 BP 125/79 05/18/21 11:57 Pulse Ox Intake & Output 05/17/21 05/18/21 05/18/21 18:59 06:59 18:59 Weight 81.647 kg - Constitutional General appearance: Present: cooperative - EENT Eyes: Present: EOMI ENT: Present: hearing grossly normal - Neck Neck: Present: normal ROM - Respiratory Respiratory: bilateral: CTA - Cardiovascular Heart sounds: normal: S1, S2 - Gastrointestinal General gastrointestinal: Present: soft - Integumentary Integumentary Comment(s): Left lower extremity swollen - Musculoskeletal Musculoskeletal: Present: gait normal - Psychiatric Psychiatric: Present: A&O x's 3, appropriate affect, intact judgment & insight - Additional findings Additional findings: Breast Exam: BRA: 38B inspection: Bilateral grade 2 ptosis Palpation: Right breast: Very dense tissue no dominant discrete masses although the whole tissue is dense and hard to examine Right axilla: No adenopathy of concern Left breast: Nipple areolar area pustular-like lesion with meld drainage as per patient, very dense tissue throughout difficult to examine Left axilla: No adenopathy of concern Assessment and Plan Assessment: Impression: 1. Stage IIB left breast cancer, patient completing neoadjuvant chemotherapy 2. Extremely dense bilateral breast difficult to examine 3. Recent left lower extremity DVT on Xeralto 4. Schizophrenia Plan: 1. Patient has expressed a desire for bilateral mastectomy; discussed reconstruction and she has declined at this time 2. Clearance from Dr. Baird secondary to the fact the patient's on Xeralto 3. Lateral mastectomy, sentinel node biopsy, possible left axillary node dissection 4. clearance from Dr. French CC: Dr. Baird, Dr. French
== END | disposition home or self-care (01) ==
LOC: WWCWWP 11:49
PROVIDERS: ATTEND Surgery
DX: Z53.9 Procedure and treatment not carried out, unspecified reason (principal)

== ENCOUNTER → 2021-06-05 | Outpatient (CLI) | payer MEDICARE, OTHER ==
--- NOTE | 2021-06-05 07:56 | US ---
EXAMINATION TYPE: US venous doppler duplex LE LT DATE OF EXAM: 06/05/2021 7:37 AM COMPARISON: 04/12/2021 CLINICAL HISTORY: 55-year-old female M79.609 pain in limb, R22.41 swelling in limb. SIDE PERFORMED: Left TECHNIQUE: The lower extremity deep venous system is examined utilizing real time linear array sonog janet with graded compression, doppler sonography and color-flow sonography. FINDINGS: VESSELS IMAGED: Common Femoral Vein Deep Femoral Vein Greater Saphenous Vein * Femoral Vein Popliteal Vein Small Saphenous Vein * Proximal Calf Veins (* superficial vessels) Left Leg: Thrombus seen in the left popliteal vein up through the lower portion of femoral vein. Cur rent examination shows some internal color and Doppler flow now. IMPRESSION: Redemonstrated DVT from the lower left femoral vein into the popliteal vein. However, the current exa m now shows some minimal internal color and Doppler flow suggesting some partial recanalization.
== END | disposition home or self-care (01) ==
LOC: RADUSWWP 07:19
PROVIDERS: ATTEND Internal Medicine
DX: M79.605 Pain in left leg (principal); M79.89 Other specified soft tissue disorders

== ENCOUNTER 2021-06-19 09:30 | Day surgery (SDC) | payer MEDICARE, OTHER ==
[2021-06-12 11:43] VITALS: BMI 30.9
--- NOTE | 2021-06-15 11:02 | P.PN ---
Subjective Progress Note Date: 06/15/21 Principal diagnosis: stage IIB left breast cancer left breast cancer T2 N1 M0 ER + AK+ HER-2 negative G3 invasive ductal carcinoma stage IIB left breast Nancy is a 55-year-old white female seen in consultation for Dr. French regarding radiographic abnormality of the breast. She stated she felt a mass in her left breast approximately 1 month prior. It was not painful. It had not changed in size. She had a bilateral mammogram performed on 55. This showed an area of increased density upper quadrant right breast as well as pleomorphic calcifications in the spiculated mass in the left breast approximately 5.4 cm from the nipple. Bilateral breast ultrasounds were perf ormed. Right breast ultrasound 0.7 x 0.6 cm lesion at the 7 to 8 o'clock position for which a biopsy was recommended Left breast 2.5 x 1.6 cm irregular lesion at 3:00 for which ultrasound-guided core biopsy was recommended as well as enlarged lymph nodes for which biopsy was recommended. She had never had any procedures on her breast before. She did not complain of any trauma or infection in her breast. She underwent an ultrasound-guided core biopsy of 2 [place] [address]. Both revealed invasive high-grade ductal carcinoma. The third area was recommended for biopsy in the right breast which was canceled by radiology. An MRI of the breast was recommended which was not performed[place] [address]. This revealed biopsy-proven malignancy in the left breast and axilla. Nonspecific right axillary lymph nodes no additional metastatic disease seen. There was a 5.7 cm left adnexal or ovarian lesion nonspecific. Pelvic ultrasound was recommended. This was performed on . This revealed bilateral ovarian cyst. Her case was presented at tumor board on 6120. Recommendations included PET scan MRI of the breast neoadjuvant chemotherapy. She had an Oncotype DX performed and her recurrence score was 31. She started chemotherapy on December 15 to January 26 she received Adriamycin/Cytoxan, and has now transitioned to Taxol on 02-08-21. Was diagnosed with a DVT in her left lower extremity on and started on xeralto. Her left breast is very firm, there is a small pustule near the nipple areolar complex from which she states she leaks milky substance. Caffeine: one pop/day nicotine: 1 PPD/30 years chocolate: occasional Family history: none Hormonal history: Menarche: 14 , breast fed: no, age at first : 24 no periods for 7 years hormones: none BCP: none Surgical history: Right knee Gallbladder core biopsy left breast port a cath placed Medical history: Schizophrenia Diabetes/on metformin High cholesterol Social History: Nicotine: 1/2 pack per day for 30 years Alcohol: Negative Drugs: Negative - Constitutional Constitutional: Denies chills, Denies fever - EENT Eyes: denies blurred vision, denies pain Ears: deny: decreased hearing, tinnitus Ears, nose, mouth and throat: Denies headache, Denies sore throat - Breasts Breasts: bilateral: as per HPI - Cardiovascular Cardiovascular: Denies chest pain, Denies shortness of breath - Respiratory Comment: smoker Respiratory: Denies cough - Gastrointestinal Gastrointestinal: Denies abdominal pain, Denies diarrhea, Denies nausea, Denies vomiting - Genitourinary (Female) Genitourinary: Denies dysuria, Denies hematuria - Menstruation Menstruation: Reports postmenopausal - Musculoskeletal Musculoskeletal: Denies myalgias - Integumentary Integumentary: Denies pruritus, Denies rash - Neurological Neurological: Denies numbness, Denies weakness - Psychiatric Comment: Schizophrenia Psychiatric: Denies anxiety, Denies depression - Endocrine Comment: diabetes Endocrine: Denies fatigue, Denies weight change - Hematologic/Lymphatic Comment: none - Allergic/Immunologic Allergic/Immunologic: Reports as per HPI Objective - Constitutional General appearance: Present: cooperative - EENT Eyes: Present: EOMI ENT: Present: hearing grossly normal - Neck Neck: Present: normal ROM - Respiratory Respiratory: bilateral: CTA - Cardiovascular Heart sounds: normal: S1, S2 - Gastrointestinal General gastrointestinal: Present: soft - Musculoskeletal Musculoskeletal: Present: gait normal - Psychiatric Psychiatric: Present: A&O x's 3, appropriate affect, intact judgment & insight - Additional findings Additional findings: Breast Exam: BRA: 38B inspection: Bilateral grade 2 ptosis Palpation: Right breast colon. Dense tissue noted dominant discrete masses although the whole breast is dense and hard to examine Right axilla no adenopathy of concern Left breast nipple areolar area posteriorly-like lesion with mild drainage as per patient very dense tissue throughout difficult to examine Left axilla: No adenopathy of concern Assessment and Plan Assessment: Impression: 1. Stage IIB left breast cancer patient completing neoadjuvant chemotherapy 2. Extremely dense bilateral breast difficult to examine 3. Recent left lower extremity DVT was treated on Xeralto 4. Schizophrenia Plan: 1. Patient desired bilateral mastectomy discussed reconstruction and she has declined 2. Clearance from Dr. Baird secondary to the fact she is uncertain well total 3. Bilateral mastectomy, left sentinel node biopsy, possible left axillary node dissection 4. Clearance from Dr. French Risk and benefits of the procedure discussed in detail with the patient. Risks include but are not limited to bleeding, infection, reaction to the anesthetic. Additionally if in axillary node dissection as necessary risks also include lymphedema, decreased sensation to the interim, and possible injury to the thoracodorsal or long thoracic nerves. Patient understands and wishes to pr oceed.
[~2021-06-19 09:30] MED LIST: DEXAMETHASONE SOD PHOSPHATE 4 MG/ML 1 ML VIAL IV ONE; HEPARIN SODIUM,PORCINE/PF 5,000 UNIT/0.5 ML SYRINGE SQ PRN; HYDROmorphone 0.5 MG/0.5 ML SYRINGE IVP PRN; LIDOCAINE 1% (10MG/ML) FOR IV START INTRADERMA PRN; ONDANSETRON 4 MG/2 ML VIAL IVP ONE; Pre Op ABX Message 1 EACH MISC MISCELLANE ONE; SCOPOLAMINE 1.5MG/72HR PATCH TRANSDERM ONE
[2021-06-19 10:26] LABS: Glucose,Whole Blood 127 mg/dL (75-99)
[2021-06-19] MEDS: LACTATED RINGERS 1,000 ML IV SCH (10:30)
[2021-06-19] MEDS ORDERED: LIDOCAINE 1% INJ 10MG/ML (20 ML MDV) SQ ONE (11:26)
[2021-06-19] MEDS ORDERED: ROCURONIUM 10 MG/ML (5 ML VIAL) IV ONE (12:10)
[2021-06-19] MEDS ORDERED: SUCCINYLCHOLINE CHLORIDE 100 MG/5 ML SYR IV ONE (12:10)
[2021-06-19] MEDS ORDERED: MIDAZOLAM 2 MG/2 ML VIAL ONE (12:10)
[2021-06-19] MEDS ORDERED: PHENYLEPHRINE-0.9% NACL SYG 1,000 MCG/10 ML SYRINGE ONE (12:10)
[2021-06-19] MEDS ORDERED: diphenhydrAMINE 50 MG/ML 1 ML VIAL ONE (12:10)
[2021-06-19] MEDS ORDERED: fentaNYL (PF) 50 MCG/ML 2 ML AMP ONE (12:10)
[2021-06-19] MEDS ORDERED: PROPOFOL 10 MG/ML 20 ML VIAL IV ONE (12:10)
[2021-06-19] MEDS ORDERED: HYDROmorphone (PF) 1 MG/ML ONE (12:10)
--- NOTE | 2021-06-19 12:26 | NM ---
EXAMINATION TYPE: NM sentinel node injection DATE OF EXAM: 06/19/2021 COMPARISON: 10/23/2020 HISTORY: 55-year-old female C50.812, left breast cancer. TECHNIQUE AND FINDINGS: The procedure of sentinel lymph node injection was explained to the patient. The benefits, alternatives, and risks were discussed. An informed consent was then obtained. Overlying skin is cleaned with sterile alcohol. Following this, 478 uCi Tc99m Tilmanocept was inject ed in the upper outer aspect of the left nipple intradermally. The patient tolerated the procedure well without any immediate complication. The patient was kept in the radiology department for short stay after the procedure and then taken to surgery for surgical p rocedure what is presumed intraoperative gamma probe will be used for sentinel lymph node detection. IMPRESSION: Left breast radiotracer injection for sentinel node localization as above. The patient a lso had ultrasound-guided needle localization of the previously biopsied positive left axillary node as well. Status post neoadjuvant chemotherapy.
[2021-06-19] MEDS ORDERED: METHYLENE BLUE 50 MG/10 ML AMPUL MISCELLANE ONE (12:45)
[2021-06-19] MEDS ORDERED: LACTATED RINGERS 1,000 ML IV ONE (14:09)
[2021-06-19] MEDS ORDERED: NALOXONE 0.4 MG/ML 1 ML VIAL IV PRN (15:20)
[2021-06-19] MEDS ORDERED: HYDROmorphone 1 MG/ML 1 ML SYRINGE IVP PRN (15:20)
[2021-06-19] MEDS ORDERED: ONDANSETRON 4 MG/2 ML VIAL IVP PRN (15:20)
--- NOTE | 2021-06-19 15:20 | P.OP ---
Date of Procedure: 06/19/21 Preoperative Diagnosis: Left breast invasive ductal carcinoma Postoperative Diagnosis: Same/status post neoadjuvant chemotherapy Procedure(s) Performed: Bilateral mastectomy, sentinel node mapping left side, sentinel node biopsy, excision of lymph node marked by needle localization Anesthesia: CHRISTA Surgeon: Keily Eli Estimated Blood Loss (ml): 50 IV fluids (ml): 1,250 Pathology: other (Bilateral breast, left axillary nodes/sentinel lymph node left) Condition: stable Disposition: floor Indications for Procedure: Left breast invasive ductal carcinoma Operative Findings: Dense breast tissue Description of Procedure: The patient is a 55-year-old white female status post neoadjuvant chemotherapy for stage IIB left invasive ductal breast cancer. The patient preoperatively had needle localization of a prior positive lymph node in the left axilla as well as injection of radioactive substance in the periareolar region. She was brought to the operative suite and following induction of anesthesia the neoprobe was utilized and did identify radioactivity in the axilla. Additionally 6 mL of half percent methylene blue was injected in the periareolar area and the breast was massaged. Following this the breast and left axilla were prepped and draped in a sterile fashion. The right breast was approached initially. Superior and inferior skin flaps were developed. These were carried down to the chest wall. The breast was removed from medial to lateral on the pectoralis muscle. The breast was marked with a short suture superior and long suture laterally. After assured that hemo stasis was attained Surgicel in powder form was placed. A number 10 Karthik- Suazo drain was placed. The skin was closed with 3-0 subcuticular sutures followed by evelin. The drains held suction with no difficulty. The left breast was then approached. Superior and inferior skin flaps were developed. The superior skin flap was carried down to the chest wall as was the inferior flap. The breast was taken from medial to lateral off of the pectoralis muscle. Hemostasis was attained using the electrocautery device as well as chronic scalpel as needed. The breast was removed. At the area of the axilla the [place] counter as well as tracking blue dye was utilized. Two radioactive lymph nodes were identified. The first node had a radioactive 10 second count of 469, the third sentinel node had a 10 second count of 1196. There was also a blue lymph node identified which is called sentinel lymph node #2 no radioactive count was noted on this. The background count was 33. One of these lymph nodes were 1 consistent with the node which had been biopsied prior to the neoadjuvant chemotherapy and a clip was in place and that node. This was sent to radiology where confirmation was made of the specimen. Further evaluation of the axilla did not reveal any other blue or radioactive lymph nodes. No other palpable nodes of concern were identified. Therefore the wound was well irrigated. After we assured that hemostasis was attained Surgicel in powder form was placed. A GEENSIS drain was placed and secured. The skin was closed using a 30 subcutaneous suture followed by evelin. The patient tolerated the procedure in stable condition. All instrument and sponge counts were correct at the end of the case.
--- NOTE | 2021-06-19 15:25 | USB ---
EXAMINATION TYPE: US breast localization LT, MG surgical specimen LT DATE OF EXAM: 06/19/2021 CLINICAL HISTORY: 55-year-old female with biopsy-proven left breast cancer and left axillary lymphadenopathy status post neoadjuvant chemotherapy. Patient scheduled for left mastectomy. Referred for needle localization of the positive left axillary lymph node. TECHNIQUE: Needle localization with wire placement and surgical excision of area of concern in the left breast. COMPARISON: 10/23/2020 FINDINGS: The previously biopsied left axillary lymph node is identified. It has dramatically decreased in size currently measuring only 7 mm. Echogenic Hydromark clip is noted within. This is targeted for needle localization. The procedure of needle localization with wire placement and than surgical excision was explained to the patient. Benefits, alternatives, and risks were discussed. An informed consent was then obtained. The shortest pathway for procedure was chosen at the axilla under ultrasound guidance. Shortest pathway was lateral approach. The overlying skin was prepped and draped in usual sterile fashion. Lidocaine was used as anesthetic into the skin and subcutaneous tissue up to the level of area of concern. Under ultrasound guidance, a 7 cm Kopan's needle was placed through the node of interest. At this point, wire was placed and the needle was withdrawn. The wire was fixed to patient's skin. Images were marked for surgeon. The patient tolerated the procedure well without any immediate complication. The patient was kept in the radiology department for short stay after the procedure and then taken to surgery for surgical excision. Targeted node, clip, and wire are identified in specimen mammogram. The patient was kept in hospital for short stay after the procedure and then discharged home in stable condition. IMPRESSION: Successful, uncomplicated needle localization with wire placement and surgical excision of positive left axillary lymph node status post neoadjuvant chemotherapy. Patient also had a left mastectomy during surgery. Full pathology results to follow. Pathology Results: Malignant A. LEFT SENTINEL LYMPH NODES, EXCISION: 2 sentinel lymph nodes, each negative for metastatic carcinoma, status post neoadjuvant therapy. 1 of the 2 lymph nodes with therapy related fibrosis and inflammation present. CK7 and USAMA stains performed with appropriate controls on blocks A1 and A2, all negative for features of metastatic carcinoma. B. RIGHT BREAST, MASTECTOMY: Fibrocystic change and fibrosis with cyst rupture, sclerosing adenosis, acute and chronic mastitis with abscess formation and focally calcified fat necrosis. Patient status post neoadjuvant therapy for previously diagnosed left breast carcinoma. All margins benign and all sections examined negative for in situ or invasive carcinoma. Benign skin and nipple. C. 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 Sections examined negative for residual invasive carcinoma. All margins benign and negative for DCIS. Closest margin to DCIS: 8 mm from closest posterior margin. D. LEFT SENTINEL LYMPH NODES, EXCISION: 2 sentinel lymph nodes, each negative for metastatic carcinoma, status post neoadjuvant therapy. CK7 and USAMA stains performed with appropriate controls on blocks D1 and D2, all negative for features of metastatic carcinoma. Recommendation Surgical consult of the left breast. MTDD
[2021-06-19 16:19] LABS: Glucose,Whole Blood 142 mg/dL (75-99)
[2021-06-19] MEDS ORDERED: LABETALOL 5 MG/ML VIAL MDV IV ONE (16:33)
[2021-06-19] MEDS: SODIUM CHLORIDE 0.9% 1,000 ML IV SCH (17:25)
[2021-06-19 18:15] LABS: Glucose,Whole Blood 150 mg/dL (75-99)
[2021-06-19 20:18] VITALS: RESP 16
[2021-06-19] MEDS ORDERED: lisinopriL 5 MG TAB PO STA (20:56)
[2021-06-19] MEDS ORDERED: ATORVASTATIN 10 MG TAB PO SCH (21:00)
[2021-06-19] MEDS ORDERED: INSULIN ASPART (NovoLOG) 100 UNIT/ML VIAL SQ SCH (21:00)
[2021-06-19 21:40] LABS: Glucose,Whole Blood 121 mg/dL (75-99)
[2021-06-19] MEDS: HEPARIN SODIUM,PORCINE/PF 5,000 UNIT/0.5 ML SYRINGE SQ SCH (21:44)
[2021-06-19] MEDS: HYDROcodone/APAP 5-325MG 1 EACH TAB PO PRN (22:47)
[2021-06-20] MEDS: HYDROcodone/APAP 5-325MG 1 EACH TAB PO PRN ×2 (03:26→08:30)
[2021-06-20] MEDS: SODIUM CHLORIDE 0.9% 1,000 ML IV SCH (03:30)
[2021-06-20] MEDS: HEPARIN SODIUM,PORCINE/PF 5,000 UNIT/0.5 ML SYRINGE SQ SCH (05:23)
[2021-06-20] MEDS: LACTATED RINGERS 1,000 ML IV SCH (07:00)
[2021-06-20] MEDS ORDERED: PANTOPRAZOLE 40 MG TABLET PO SCH (07:30)
[2021-06-20 07:57] LABS: Glucose,Whole Blood 99 mg/dL (75-99)
[2021-06-20 08:08] VITALS: BP 153/79; PULSE 71; TEMP 97.8
[2021-06-20 08:20] LABS: Anisocytosis Slight; Basophils % (A) 0 %; Eosinophils # (A) 0.1 k/uL (0-0.7); Eosinophils % (A) 2 %; HCT 35.1 % (34.0-46.0); Lymphocytes # (A) 1.4 k/uL (1.0-4.8); Lymphocytes % (A) 28 %; MCH 31.9 pg (25.0-35.0); MCHC 34.1 g/dL (31.0-37.0); MCV 93.5 fL (80.0-100.0); Mean Platelet Volume 7.7; Monocytes # (A) 0.3 k/uL (0-1.0); Monocytes % (A) 6 %; Neutrophils # (A) 2.9 k/uL (1.3-7.7); Neutrophils % (A) 60 %; Platelet Count 201 k/uL (150-450); RBC 3.75 m/uL (3.80-5.40); RDW 16.3 % (11.5-15.5); WBC 4.8 k/uL (3.8-10.6)
[2021-06-20 08:40] LABS: ALT 33 U/L (4-34); AST 43 U/L (14-36); African American GFR (CKD) >90 (>60 ml/min/1.73 sqM); Albumin 3.6 g/dL (3.5-5.0); Alkaline Phosphatase 128 U/L (38-126); Anion Gap 8 mmol/L; Blood Urea Nitrogen 10 mg/dL (7-17); Calcium 8.9 mg/dL (8.4-10.2); Carbon Dioxide 21 mmol/L (22-30); Chloride 110 mmol/L (98-107); Glucose 94 mg/dL (74-99); Non-African American GFR(CKD) >90 (>60 ml/min/1.73 sqM); Potassium 3.8 mmol/L (3.5-5.1); Sodium 139 mmol/L (137-145); Total Bilirubin 0.7 mg/dL (0.2-1.3); Total Protein 6.8 g/dL (6.3-8.2)
[2021-06-20] MEDS ORDERED: lisinopriL 5 MG TAB PO SCH (09:00)
[2021-06-20] MEDS ORDERED: FENOFIBRATE 160 MG TAB PO SCH (09:00)
--- NOTE | 2021-06-20 09:20 | P.PN ---
Subjective Progress Note Date: 06/20/21 Principal diagnosis: Postop day #1 bilateral mastectomy with left axillary node sampling left breast cancer T2 N1 M0 ER + HI+ HER-2 negative G3 invasive ductal carcinoma stage IIB left breast Nancy is status post postop day #1 bilateral mastectomy with left axillary node sampling. Postprocedure she is doing well. She had a prior history of bilateral lower extremity DVT. She is not complaining of any lower extremity pain. She is tolerating diet without difficulty. GENESIS drainage is serous and minimal bilaterally. Objective - Vital Signs Vital signs: Vital Signs Temp 97.8 F 06/20/21 08:00 Pulse 71 06/20/21 08:00 Resp 16 06/20/21 08:00 BP 153/79 06/20/21 08:00 Pulse Ox 97 06/20/21 08:00 Intake & Output 06/19/21 06/20/21 06/20/21 18:59 06:59 18:59 Intake Total 1550 1050 Output Total 430 706 Balance 1120 344 Weight 97.4 kg Intake: IV 1550 Intake, IV Titration 1050 Amount Sodium Chloride 0.9% 1, 1000 000 ml @ 100 mls/hr IV . Q10H [facility] Rx#:[id number] ceFAZolin 1,000 mg In 50 Sodium Chloride 0.9% 50 ml @ 100 mls/hr IVPB Q6HR [facility] Rx#:[id number] Output: Drainage 6 Bilateral Breast 6 Urine 380 700 Estimated Blood Loss 50 Other: # Voids 2 - Constitutional General appearance: Present: cooperative - EENT Eyes: Present: EOMI ENT: Present: hearing grossly normal - Neck Neck: Present: normal ROM - Respiratory Respiratory: bilateral: CTA - Cardiovascular Heart sounds: normal: S1, S2 - Integumentary Integumentary Comment(s): Bilateral chest wall incisions clean and dry no evidence of hematoma GENESIS bilateral serous - Psychiatric Psychiatric: Present: A&O x's 3, appropriate affect, intact judgment & insight - Labs CBC & Chem 7: 06/20/21 07:53 06/20/21 07:53 Labs: Abnormal Lab Results - Last 24 Hours (Table) 06/19/21 06/19/21 06/19/21 Range/Units 10:23 16:17 18:13 RBC (3.80-5.40) m/uL RDW (11.5-15.5) % Chloride (98-107) mmol/L Carbon Dioxide (22-30) mmol/L POC Glucose (mg/dL) 127 H 142 H 150 H (75-99) mg/dL AST (14-36) U/L Alkaline Phosphatase (38-126) U/L 06/19/21 06/20/21 06/20/21 Range/Units 21:39 07:53 07:53 RBC 3.75 L (3.80-5.40) m/uL RDW 16.3 H (11.5-15.5) % Chloride 110 H (98-107) mmol/L Carbon Dioxide 21 L (22-30) mmol/L POC Glucose (mg/dL) 121 H (75-99) mg/dL AST 43 H (14-36) U/L Alkaline Phosphatase 128 H (38-126) U/L Assessment and Plan Assessment: Impression: 1. Stage IIB left breast cancer patient completed neoadjuvant chemotherapy 2. Bilateral incisions clean and dry 3. Recent left lower extremity DVT was treated on Xeralto; patient discussed with Dr. Baird prior to surgery and secondary to recent lower extremity discomfort elastic stockings were used during the surgery and not pneumatic compression device, patient was given subcutaneous heparin, she will restart Xeralto today 4. Schizophrenia Plan: 1. Discharge patient home if okay with medicine 2. Follow-up with Dr. Calero next week
--- NOTE | 2021-06-20 09:24 | P.DS ---
Providers Date of admission: 06-19-21 Expected date of discharge: 06/20/21 Attending physician: Keily Eli Consults: 06/19/21 20:09 Consult Physician Urgent Consulting Provider: Lizy French Consult Reason/Comments: post surgical elevated bps Do you want consulting provider notified?: Already Contacted Primary care physician: Manolo Flores [facility] Course: The patient is a 55-year-old white female who is status post neoadjuvant chemotherapy. She underwent a bilateral mastectomy and left axillary node sampling on . Postoperatively she is doing well and is ready for discharge. Assessment: Patient is doing well tolerating diet without difficulty and without complaints Procedures: Bilateral mastectomy, left axillary node sampling Plan - Discharge Summary Discharge Rx Participant: Yes New Discharge Prescriptions: No Action Simvastatin [Zocor] 20 mg PO HS ARIPiprazole [Abilify Maintena] 300 mg IM QMONTHLY Fenofibrate Nanocrystallized [Fenofibrate] 145 mg PO QAM metFORMIN HCL 500 mg PO QAM Trihexyphenidyl [Artane] 2 mg PO BID Rivaroxaban [Xarelto] 20 mg PO HS traZODone HCL 100 mg PO HS Omeprazole 40 mg PO DAILY Discharge Medication List ARIPiprazole [Abilify Maintena] 300 mg IM QMONTHLY 12/31/16 [History] Fenofibrate Nanocrystallized [Fenofibrate] 145 mg PO QAM 12/31/16 [History] Simvastatin [Zocor] 20 mg PO HS 12/31/16 [History] metFORMIN HCL 500 mg PO QAM 10/16/20 [History] traZODone HCL 100 mg PO HS 10/16/20 [History] Omeprazole 40 mg PO DAILY 04/12/21 [History] Trihexyphenidyl [Artane] 2 mg PO BID 04/12/21 [History] Rivaroxaban [Xarelto] 20 mg PO HS 04/26/21 [History] Follow up Appointment(s)/Referral(s): Keily Eli MD [STAFF PHYSICIAN] - 1 Week Activity/Diet/Wound Care/Special Instructions: Be sure patient restarts Xeralto today teach patient drain care and how to record output daily Discharge Disposition: HOME WITH HOME HEALTH SERVICES
[2021-06-20] MEDS ORDERED: NICOTINE 14MG/24HR PATCH TRANSDERM STA (10:36)
[2021-06-20] MEDS ORDERED: amLODIPine 5 MG TAB PO SCH (10:45)
[2021-06-20] MEDS ORDERED: RIVAROXABAN 20 MG TAB PO SCH (17:30)
--- NOTE | 2021-06-20 23:44 | P.CONS ---
History of Present Illness - History of Present Illness This is a pleasant 55 years old female with past medical history of diabetes mellitus, deep venous thrombosis on Xarelto, hypertension, Hyperlipidemia, schizophrenia, she was recently diagnosed on 10/23/20 LT dx breast invasive high grade ductal carcinoma(chemo 12/15/20-01/26/21), DVT 04/12/21, she was admitted to the gynecology service floor and underwent bilateral mastectomy with left axillary node sampling. Today is postoperative day #1. Medical service was consulted for blood pressure management. Patient was lying in bed comfortable, fully awake and oriented, not in distress. She denies any specific symptoms to me, no headache or dizziness or weakness or numbness. She denies chest pain or dyspnea. No coughing. No nausea vomiting or abdominal pain or diarrhea. No dysuria or change in frequency. No fever. She denies smoking alcohol or illicit drugs to me Her blood pressure on admission was 146/82, yesterday 1 tied to 189/101 and this morning was 139/69, probably when she was asleep, currently last to reduce her blood pressure were 151/75 and 153/79. Also patient noted to be on IV fluids which is stopped now which could be contributed for higher blood pressure reading yesterday. Other than that her vitals are stable she's afebrile and heart rate in 70s. She is saturating 97% on room air. Her CBC is unremarkable, BMP and liver enzymes also unremarkable. Coronavirus nondetected. Patient was given 1 dose of lisinopril, a 5 mg, this medication need to be followed for sure to check her creatinine and potassium in 1-2 weeks when I told the patient she was not sure if she was going to follow up with her PCP Dr. Juárez on time therefore we prefer to change it to Norvasc 5 mg and she agrees She confirmed to me she is on metformin 500 mg daily and she has this medication as well as other medication of fluid in Xarelto at home Review of Systems CONSTITUTIONAL: No fever, no malaise, no fatigue. HEENT: No recent visual problems or hearing problems. Denied any sore throat. CARDIOVASCULAR: No orthopnea, PND, no palpitations, no syncope. PULMONARY: No shortness of breath, no cough, no hemoptysis. GASTROINTESTINAL: No diarrhea, no nausea, no vomiting, no abdominal pain. Normoactive bowel sounds. NEUROLOGICAL: No headaches, no weakness, no numbness. HEMATOLOGICAL: Denies any bleeding or petechiae. GENITOURINARY: Denies any burning micturition, frequency, or urgency. MUSCULOSKELETAL/RHEUMATOLOGICAL: Denies any joint pain, swelling, or any muscle pain. ENDOCRINE: Denies any polyuria or polydipsia. Past Medical History Past Medical History: Cancer, Diabetes Mellitus, Deep Vein Thrombosis (DVT), Hyperlipidemia Additional Past Medical History / Comment(s): "body tremors"; 10/23/20 LT dx breast invasive high grade ductal carcinoma(chemo 12/15/20-01/26/21), DVT 04/12/21, History of Any Multi-Drug Resistant Organisms: None Reported Past Surgical History: Section, Cholecystectomy, Orthopedic Surgery, Tubal Ligation Additional Past Surgical History / Comment(s): LT lateral breast and LT axilla biopsy 10/23/20, arthroscopy left knee Past Anesthesia/Blood Transfusion Reactions: No Reported Reaction Past Psychological History: Schizophrenia Smoking Status: Current every day smoker Past Alcohol Use History: None Reported Additional Past Alcohol Use History / Comment(s): smokes 1 PPD, started smoking age 18 Past Drug Use History: None Reported - Past Family History Brother(s) Family Medical History: Cancer Medications and Allergies Home Medications Medication Instructions Recorded Confirmed Type ARIPiprazole [Abilify Maintena] 300 mg IM QMONTHLY 12/31/16 06/12/21 History Fenofibrate Nanocrystallized 145 mg PO QAM 12/31/16 06/12/21 History [Fenofibrate] Simvastatin [Zocor] 20 mg PO HS 12/31/16 06/12/21 History metFORMIN HCL 500 mg PO QAM 10/16/20 06/12/21 History traZODone HCL 100 mg PO HS 10/16/20 06/12/21 History Omeprazole 40 mg PO DAILY 04/12/21 06/12/21 History Trihexyphenidyl [Artane] 2 mg PO BID 04/12/21 06/12/21 History Rivaroxaban [Xarelto] 20 mg PO HS 04/26/21 06/12/21 History amLODIPine [Norvasc] 5 mg PO DAILY #30 tab 06/20/21 Rx Allergies Allergy/AdvReac Type Severity Reaction Status Date / Time No Known Allergies Allergy Verified 06/19/21 09:53 Physical Exam Vitals: Vital Signs Temp Pulse Pulse Resp BP BP Pulse Ox 06/20/21 08:00 97.8 F 71 16 153/79 97 06/20/21 04:00 98.5 F 74 16 151/75 98 06/20/21 00:00 98.0 F 74 16 139/69 94 L 06/19/21 20:00 72 16 172/86 96 06/19/21 19:45 73 16 169/86 97 06/19/21 19:15 98.0 F 80 17 169/86 95 06/19/21 18:45 98 F 79 18 189/101 93 L 06/19/21 18:27 84 17 166/89 100 06/19/21 18:12 80 17 149/96 96 06/19/21 17:57 77 17 164/97 98 06/19/21 17:50 98.1 F 70 17 127/82 100 06/19/21 17:42 74 17 178/101 100 06/19/21 17:27 98.1 F 70 17 127/82 98 06/19/21 16:59 71 12 152/81 92 L 06/19/21 16:42 74 12 151/80 92 L 06/19/21 16:28 77 12 168/80 94 L 06/19/21 16:16 79 12 160/81 94 L 06/19/21 16:00 70 12 131/69 94 L 06/19/21 15:45 71 12 156/75 94 L 06/19/21 15:37 97.4 F L 79 12 130/72 94 L 06/19/21 12:00 81 16 140/82 98 06/19/21 11:49 97.5 F L 69 16 142/89 06/19/21 10:53 97.8 F 84 18 148/90 Intake and Output 06/19/21 06/20/21 06/20/21 22:59 06:59 14:59 Intake Total 100 1050 Output Total 936 200 6 Balance -836 850 -6 Intake: IV 100 Intake, IV Titration 1050 Amount Sodium Chloride 0.9% 1, 1000 000 ml @ 100 mls/hr IV . Q10H [facility] Rx#:[id number] ceFAZolin 1,000 mg In 50 Sodium Chloride 0.9% 50 ml @ 100 mls/hr IVPB Q6HR [facility] Rx#:[id number] Output: Drainage 6 6 Bilateral Breast 6 6 Urine 880 200 Estimated Blood Loss 50 Other: # Voids 1 2 Weight 97.4 kg GENERAL: The patient is alert and oriented x3, not in any acute distress. Well developed, well nourished. HEENT: Pupils are round and equally reacting to light. EOMI. No scleral icterus. No conjunctival pallor. Normocephalic, atraumatic. No pharyngeal erythema. No thyromegaly. CARDIOVASCULAR: S1 and S2 present. No murmurs, rubs, or gallops. -PULMONARY: Chest is clear to auscultation, no wheezing or crackles. Bilateral surgical wounds with a dressing in place, rest of exam is deferred to primary surgical team ABDOMEN: Soft, nontender, nondistended, normoactive bowel sounds. No palpable organomegaly. MUSCULOSKELETAL: No joint swelling or deformity. EXTREMITIES: No cyanosis, clubbing, or pedal edema. NEUROLOGICAL: Gross neurological examination did not reveal any focal deficits. SKIN: No rashes. No petechiae Results CBC & Chem 7: 06/20/21 07:53 06/20/21 07:53 Labs: Abnormal Lab Results - Last 24 Hours (Table) 06/19/21 06/19/21 06/19/21 Range/Units 16:17 18:13 21:39 RBC (3.80-5.40) m/uL RDW (11.5-15.5) % Chloride (98-107) mmol/L Carbon Dioxide (22-30) mmol/L POC Glucose (mg/dL) 142 H 150 H 121 H (75-99) mg/dL AST (14-36) U/L Alkaline Phosphatase (38-126) U/L 06/20/21 06/20/21 Range/Units 07:53 07:53 RBC 3.75 L (3.80-5.40) m/uL RDW 16.3 H (11.5-15.5) % Chloride 110 H (98-107) mmol/L Carbon Dioxide 21 L (22-30) mmol/L POC Glucose (mg/dL) (75-99) mg/dL AST 43 H (14-36) U/L Alkaline Phosphatase 128 H (38-126) U/L Assessment and Plan Assessment: Hypertension, mildly uncontrolled, High-grade ductal carcinoma of the breast status post bilateral mastectomy with left axillary node sampling. Today is postoperative day #1. Diabetes mellitus on metformin 500 mg daily Hyperlipidemia History of deep venous thrombosis on Xarelto schizophrenia Obesity with BMI of 36.9 Plan: This is a pleasant 55 years old female who presents with breast cancer status post bilateral mastectomy. Also with uncontrolled hypertension We will add Norvasc 5 mg daily, with recommendation for outpatient follow-up of blood pressure, patient informed and she agrees, prescription was sent to the pharmacy Labs and medication were reviewed.. Continue same treatment. Continue with symptomatic treatment. Resume home medication. Monitor lytes and vitals. DVT and GI prophylaxis. Further recommendations as per clinical course of the patient we recommend patient follow up with her PCP in one week after discharge and patient was instructed with the same Thank you for consulting us
[2021-07-17] MEDS ORDERED: ARIPIPRAZOLE 300 MG IM SCH (09:00)
== END 2021-06-20 11:30 | disposition home health service (06) ==
LOC: OR 09:30 → 4FBP 15:24 → OR 06-20 11:30
PROVIDERS: ATTEND Surgery
DX: D05.12 Intraductal carcinoma in situ of left breast (principal); N60.11 Diffuse cystic mastopathy of right breast; N61.1 Abscess of the breast and nipple; N64.1 Fat necrosis of breast; E11.9 Type 2 diabetes mellitus without complications; Z86.718 Personal history of other venous thrombosis and embolism; Z20.822 Contact with and (suspected) exposure to COVID-19; I10 Essential (primary) hypertension; E78.5 Hyperlipidemia, unspecified; F20.9 Schizophrenia, unspecified; F17.210 Nicotine dependence, cigarettes, uncomplicated; Z92.21 Personal history of antineoplastic chemotherapy; Z98.891 History of uterine scar from previous surgery; Z95.828 Presence of other vascular implants and grafts; Z98.51 Tubal ligation status; Z80.9 Family history of malignant neoplasm, unspecified; Z79.899 Other long term (current) drug therapy; Z79.01 Long term (current) use of anticoagulants; Z79.84 Long term (current) use of oral hypoglycemic drugs
CPT/HCPCS: 80053; 85025; 88342; 88307; 88341; 87635; 76098; 19285; 38792; 19303; 38500; C1819; A9520; J2250; J1200; J1100; J0690 ×3; J2405; J2001; J3010; J1170; J2370; J0330; J2704; Q9968; J1644 ×2

== ENCOUNTER → 2021-06-28 | Outpatient (CLI) | payer MEDICARE, OTHER ==
[2021-06-28 14:12] VITALS: BP 135/98; PULSE 98; RESP 16; TEMP 98.6
--- NOTE | 2021-06-28 14:25 | P.PN ---
Subjective Progress Note Date: 06/28/21 Principal diagnosis: Status post bilateral mastectomy with a sentinel node biopsy on the left Nancy is a 55-year-old white female status post bilateral mastectomy with left sentinel node biopsy on . She is status post neoadjuvant chemotherapy. She tolerated the surgery without difficulty. Her drains are putting approximately 30 mL a piece of serous fluid. Objective - Vital Signs Vital signs: Vital Signs Temp 98.6 F 06/28/21 14:06 Pulse 98 06/28/21 14:06 Resp 16 06/28/21 14:06 BP 135/98 06/28/21 14:06 Pulse Ox Intake & Output 06/27/21 06/28/21 06/28/21 18:59 06:59 18:59 Weight 81.647 kg - Constitutional General appearance: Present: cooperative - EENT Eyes: Present: EOMI ENT: Present: hearing grossly normal - Neck Neck: Present: normal ROM - Respiratory Respiratory: bilateral: CTA - Cardiovascular Rhythm: regular Heart sounds: normal: S1, S2 - Integumentary Integumentary Comment(s): Incisions clean and dry bilateral, no evidence of any infection, no evidence of any seroma at this time, GENESIS drains intact with serous fluid bilateral no evidence of infection - Musculoskeletal Musculoskeletal: Present: gait normal - Psychiatric Psychiatric: Present: A&O x's 3, appropriate affect, intact judgment & insight Assessment and Plan Assessment: Impression: Patient status post bilateral mastectomy with left sentinel node sampling 06-19-21 Plan: Remove every other staple Leave drains in place his output is approximately 30 mL a day from each drain Follow-up next week Follow up with medical and radiation oncology CC: Dr. French
== END | disposition home or self-care (01) ==
LOC: WWCWWP 13:48
PROVIDERS: ATTEND Surgery
DX: Z53.9 Procedure and treatment not carried out, unspecified reason (principal)

== ENCOUNTER → 2021-07-05 | Outpatient (CLI) | payer MEDICARE, OTHER ==
--- NOTE | 2021-07-05 13:06 | P.PN ---
Progress Note - Text Progress Note Date: 07/05/21 Status post bilateral mastectomy with a sentinel node biopsy on the left; 06-19-21 Nancy is a 55-year-old white female status post bilateral mastectomy with left sentinel node biopsy on . She is status post neoadjuvant chemotherapy. She tolerated the surgery without difficulty. Her drains are putting out serous fluid less than 40 mL per drain in a 24-hour period for several days. 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 status post neoadjuvant therapy sections examined negative for residual invasive cancer all margins benign and negative for DCIS Total sentinel nodes removed to negative for metastatic cancer The patient is doing well at this time Physical examination: Lungs: Clear Heart: Regular rate and rhythm Incisions clean and dry bilateral GENESIS drainage serous bilateral no evidence of any seroma or infection Impression: Patient status post bilateral mastectomy, patient had had a left breast 2.5 cm invasive ductal carcinoma ER/LA positive HER-2/heather negative G3 for which she underwent neoadjuvant chemotherapy. She was given dose dense AC and completed 4 cycles on . She then began neoadjuvant weekly Taxol. She developed a DVT on 04/29 and was started on xeralto. Plan: patient doing well post op follow up with medical oncology follow up here in 4 months CC: Dr. French
[2021-07-05 13:25] VITALS: BP 150/79; PULSE 83; RESP 18; TEMP 97.5
== END | disposition home or self-care (01) ==
LOC: WWCWWP 12:30
PROVIDERS: ATTEND Surgery
DX: Z53.9 Procedure and treatment not carried out, unspecified reason (principal)

== ENCOUNTER → 2021-07-13 | Outpatient (CLI) | payer MEDICARE, OTHER ==
[2021-07-13 08:45] VITALS: BP 175/96; PULSE 84; RESP 18; TEMP 98.1
--- NOTE | 2021-07-13 09:48 | P.PN ---
Progress Note - Text Progress Note Date: 07/13/21 Status post bilateral mastectomy with a sentinel node biopsy on the left; 06-19-21 Nancy is a 55-year-old white female status post bilateral mastectomy with left sentinel node biopsy on . She is status post neoadjuvant chemotherapy. She tolerated the surgery without difficulty. Her drains were removed last week. She has developed a seroma on the left side but not on the right. 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 focal comedonecrosis status post neoadjuvant therapy sections examined negative for residual invasive cancer all margins benign and negative for DCIS Total sentinel nodes removed two negative for metastatic cancer The patient is doing well at this time Physical examination: Lungs: Wheezing at the left lung base Heart: Regular rate and rhythm Incisions clean and dry bilateral; seroma left chest wall Impression: Patient status post bilateral mastectomy, patient had had a left breast 2.5 cm invasive ductal carcinoma ER/CO positive HER-2/heather negative G3 for which she underwent neoadjuvant chemotherapy. She was given dose dense AC and completed 4 cycles on . She then began neoadjuvant weekly Taxol. She developed a DVT on 04/29 and was started on xeralto. Plan: patient doing well post op follow up with medical oncology Aspiration seroma left chest wall Removal of staple left chest wall incision, reinforcement of incision at 3 sites with nylon suture Follow-up one week CC: Dr. French Aspiration of seroma/reinforcement of incision with 3-0 nylon suture Following informed consent the area was prepped using alcohol. An 18-gauge needle on a 60 mL syringe was inserted into the seroma. 125 mL of yellow fluid was obtained. This caused resolution of the seroma. A single staple was noted to be present in the incision and this was removed The incision was reinforced using a 3-0 nylon suture at 3 sites. The area of the skin was prepped using Betadine and the suture was replaced. The patient tolerated the procedure in stable condition
== END | disposition home or self-care (01) ==
LOC: WWCWWP 08:10
PROVIDERS: ATTEND Surgery
DX: Z53.9 Procedure and treatment not carried out, unspecified reason (principal)

== ENCOUNTER → 2021-07-20 | Outpatient (CLI) | payer MEDICARE, OTHER ==
[2021-07-20 11:17] VITALS: BP 182/101; PULSE 62; RESP 17; TEMP 98.3
--- NOTE | 2021-07-20 11:24 | P.PN ---
Progress Note - Text Progress Note Date: 07/20/21 Status post bilateral mastectomy with a sentinel node biopsy on the left; 06-19-21 Nancy is a 55-year-old white female status post bilateral mastectomy with left sentinel node biopsy on . She is status post neoadjuvant chemotherapy. She tolerated the surgery without difficulty. Her drains are putting out serous fluid less than 40 mL per drain in a 24-hour period for several days. 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 status post neoadjuvant therapy sections examined negative for residual invasive cancer all margins benign and negative for DCIS Total sentinel nodes removed two negative for metastatic cancer The patient is doing well at this time, but stated that several days ago she noticed some increased drainage from the left incision site and some opening of the midportion of the incision Physical examination: Lungs: Clear Heart: Regular rate and rhythm Incisions clean and dry bilateral Small seroma right chest wall no evidence of infection, left breast midportion of incision some necrosis of the medial portion of the wound no evidence of infection Impression: Patient status post bilateral mastectomy, patient had had a left breast 2.5 cm invasive ductal carcinoma ER/[place] positive HER-2/heather negative G3 for which she underwent neoadjuvant chemotherapy. She was given dose dense AC and completed 4 cycles on . She then began neoadjuvant weekly Taxol. She developed a DVT on 04/29 and was started on xeralto. Necrosis medial portion of the left mastectomy incision Plan: Debridement mastectomy incision left chest wall CC: Dr. French
--- NOTE | 2021-07-20 11:44 | P.PCN ---
Date of Procedure: 07/20/21 Preoperative Diagnosis: Eschar with opening the midportion of left chest wall mastectomy incision Postoperative Diagnosis: Same Procedure(s) Performed: Debridement of eschar and reinforcement of mastectomy incision Anesthesia: local Surgeon: Keily Eli Pathology: other (Eschar left mastectomy incision) Condition: stable Disposition: same day Indications for Procedure: Eschar with small opening midportion of mastectomy incision left chest wall Description of Procedure: Following informed consent the left chest wall incision was prepped using Betadine. Sharp dissection was performed removing the eschar over the area where the incision was slightly opened. This was a 5 cm area. After this was performed and we were assured the area was clean several nylon sutures were placed to reinforce the incision. The patient tolerated the procedure in stable condition. She will follow up next week. If she notes any fever or chills or erythema of the area she's going to call sooner.
== END | disposition home or self-care (01) ==
LOC: WWCWWP 10:18
PROVIDERS: ATTEND Surgery
DX: Z53.9 Procedure and treatment not carried out, unspecified reason (principal)

== ENCOUNTER → 2021-08-03 | Outpatient (CLI) | payer MEDICARE, OTHER ==
[2021-08-03 09:32] VITALS: BP 172/96; RESP 17; TEMP 97.9
--- NOTE | 2021-08-03 11:01 | P.PN ---
Progress Note - Text Progress Note Date: 08/03/21 Status post bilateral mastectomy with a sentinel node biopsy on the left; 06-19-21 Nancy is a 55-year-old white female status post bilateral mastectomy with left sentinel node biopsy on . She is status post neoadjuvant chemotherapy. She tolerated the surgery without difficulty. Her drains then removed. 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 She has some minimal drainage from the left side as well. Physical examination: Lungs: Clear Heart: Regular rate and rhythm Incisions clean and dry bilateral Small seroma right chest wall no evidence of infection, 5 cm dehiscence of the medial portion of the incision on the right chest wall. left breast midportion of incision some necrosis of the medial portion of the wound no evidence of infection this was debrided last week. Impression: Patient status post bilateral mastectomy, patient had had a left breast 2.5 cm invasive ductal carcinoma ER/UT positive HER-2/heather negative G3 for which she underwent neoadjuvant chemotherapy. She was given dose dense AC and completed 4 cycles on . She then began neoadjuvant weekly Taxol. She developed a DVT on 04/29 and was started on xeralto. Necrosis medial portion of the left mastectomy incision healing, no necrosis medial portion of the right mastectomy incision Plan: Debridement mastectomy incision right and left chest wall Following informed consent both areas of the chest wall were prepped using Betadine. At 5 cm area of the right was debrided and reinforced using 3-0 nylon sutures. The area was packed using iodoform gauze, there was some serous drainage and small opening into the mastectomy site. The left side was approached and sutures were removed. Minimal debridement was performed and reinforcement of several areas of incision were performed using 3- 0 nylon suture. Patient tolerated the procedure in stable condition will follow up next week. Home health care nurse will be obtained to help with the packing changing.
== END | disposition home or self-care (01) ==
LOC: WWCWWP 08:58
PROVIDERS: ATTEND Surgery
DX: Z53.9 Procedure and treatment not carried out, unspecified reason (principal)

== ENCOUNTER → 2021-08-06 | Outpatient (CLI) | payer MEDICARE, OTHER ==
[2021-08-06 11:01] VITALS: BP 159/102; PULSE 88; RESP 19; TEMP 98.1
--- NOTE | 2021-08-06 11:29 | P.PN ---
Progress Note - Text Progress Note Date: 08/06/21 Status post bilateral mastectomy with a sentinel node biopsy on the left; 06-19-21 Nancy is a 55-year-old white female status post bilateral mastectomy with left sentinel node biopsy on . She is status post neoadjuvant chemotherapy. She tolerated the surgery without difficulty. Her drains then removed. 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 She had some minimal drainage from the left side as well. Both wounds were debrided and packed on the right side. We received a phone call from her daughter who is changing the packing earlier today that she had some increased erythema and tenderness of the left incision. Was therefore requested that she come in for evaluation. The patient herself states that it did not seem more tender. He has not had any fever or chills. Physical examination: Lungs: Clear Heart: Regular rate and rhythm Incision right chest wall: Decreased seroma right chest wall no evidence of infection, 5 cm dehiscence of the medial portion of the incision on the right chest wall which was reinforced last week and is now packed. This is decreased in size. The medial portion of it does appear to be slightly dehisced but is healing without difficulty left breast midportion of incision some necrosis of the medial portion of the wound no evidence of infection this was debrided last week, she does have what appears to be a stitch abscess in the medial portion of the incision and some mild swelling and erythema of the upper portion of the incision Impression: Patient status post bilateral mastectomy, patient had had a left breast 2.5 cm invasive ductal carcinoma ER/ND positive HER-2/heather negative G3 for which she underwent neoadjuvant chemotherapy. She was given dose dense AC and completed 4 cycles on . She then began neoadjuvant weekly Taxol. She developed a DVT on 04/29 and was started on xeralto. Necrosis medial portion of the right mastectomy incision healing packing changed Stitch abscess medial portion of the left mastectomy incision Midportion of the incision which had been reinforced with some slight drainage Plan: Debridement mastectomy incision left chest wall Following obtaining informed consent the area of the incision in the left chest wall was prepped using Betadine a suture was removed and the wound was probed minimal seroma fluid was obtained The wound was well irrigated The medial portion of the incision did appear to have a stitch abscess and small amount of purulent drainage was expressed The wound was then packed using iodoform gauze The patient will follow up on She is to call sooner if she has any questions or concerns any fever or chills
== END | disposition home or self-care (01) ==
LOC: WWCWWP 10:45
PROVIDERS: ATTEND Surgery
DX: Z53.9 Procedure and treatment not carried out, unspecified reason (principal)

== ENCOUNTER → 2021-08-09 | Outpatient (CLI) | payer MEDICARE, OTHER ==
--- NOTE | 2021-08-09 12:40 | P.PN ---
Progress Note - Text Progress Note Date: 08/09/21 Status post bilateral mastectomy with a sentinel node biopsy on the left; 06-19-21 Nancy is a 55-year-old white female status post bilateral mastectomy with left sentinel node biopsy on . She is status post neoadjuvant chemotherapy. She tolerated the surgery without difficulty. Her drains then removed. 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 She had some minimal drainage from the left side as well. Both wounds were debrided and packed on the right side. We received a phone call from her daughter who is changing the packing earlier today that she had some increased erythema and tenderness of the left incision. Was therefore requested that she come in for evaluation. The patient herself states that it did not seem more tender. He has not had any fever or chills. 08-09-21 patient is seen today regarding her bilateral incisions. At this time both were granulating without difficulty. There does not appear to be any evidence of infection. The patient's packing was changed Physical examination: Incisions bilateral mastectomy sites packing changed nice granulation tissue and no evidence of infection these are healing without difficulty Right chest wall incision: 21/2 centimeters area of dehiscence Left chest wall incision: 2-1/2 cm area of dehiscence Impression: Patient's incisions being packed these are healing at this time without evidence of infection Plan: Continue present therapy Follow-up with radiation therapy after these of healed CC: Dr. French
[2021-08-09 14:32] VITALS: BP 181/101; PULSE 79; RESP 18; TEMP 97.6
== END | disposition home or self-care (01) ==
LOC: WWCWWP 11:57
PROVIDERS: ATTEND Surgery
DX: Z53.9 Procedure and treatment not carried out, unspecified reason (principal)

== ENCOUNTER → 2021-08-14 | Outpatient (CLI) | payer MEDICARE, OTHER ==
--- NOTE | 2021-08-14 12:00 | P.PN ---
Progress Note - Text Progress Note Date: 08/14/21 Status post bilateral mastectomy with a sentinel node biopsy on the left; 06-19-21 Nancy is a 55-year-old white female status post bilateral mastectomy with left sentinel node biopsy on . She is status post neoadjuvant chemotherapy. She tolerated the surgery without difficulty. Her drains then removed. 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 She had some minimal drainage from the left side as well. Both wounds were debrided and packed on the right side. We received a phone call from her daughter who is changing the packing earlier today that she had some increased erythema and tenderness of the left incision. Was therefore requested that she come in for evaluation. The patient herself states that it did not seem more tender. He has not had any fever or chills. 08-09-21 patient is seen today regarding her bilateral incisions. At this time both were granulating without difficulty. There does not appear to be any evidence of infection. The patient's packing was changed 08-14-21 The chest wall incision superficial approximately 2 cm packing change; is decreased from approximately 2-1/2 cm Left chest wall incision approximately 2 cm packing changed this is decreased from approximately 2-1/2 cm This granulation tissue both incisions no evidence of infection Impression: Patient's incisions being packed these are healing at this time without evidence of infection Plan: Continue present therapy Follow-up with radiation therapy after these of healed Patient will follow up here in approximately 2 weeks. If the patient has any questions or concerns she will call immediately. I have told her that I will be out of town for approximately 12 days she understands that if there is any question or concern Dr. Tay and Dr. Cain are covering me and it could be reached through the office
[2021-08-14 14:52] VITALS: BP 165/105; PULSE 89; RESP 18; TEMP 98
== END | disposition home or self-care (01) ==
LOC: WWCWWP 10:40
PROVIDERS: ATTEND Surgery
DX: Z53.9 Procedure and treatment not carried out, unspecified reason (principal)

== ENCOUNTER → 2021-08-28 | Outpatient (CLI) | payer MEDICARE, OTHER ==
--- NOTE | 2021-08-28 10:35 | US ---
EXAMINATION TYPE: US transvaginal DATE OF EXAM: 08/28/2021 COMPARISON: US 2020 CLINICAL HISTORY: N85.8. Follow up ovarian cysts, 4, para 3, 1, history of 2 c-secti ons and tubal ligation TECHNIQUE: Transvaginal exam only per ordering physician Date of LMP: 2016 EXAM MEASUREMENTS: Uterus: 7.0 x 4.6 x 3.8 cm Endometrial Stripe: 0.4 cm Right Ovary: 3.7 x 2.7 x 2.9 cm Left Ovary: 5.9 x 4.4 x 3.6 cm 1. Uterus: anteverted, heterogeneous 2. Endometrium: appears wnl 3. Right Ovary: 3.3 x 2.5 x 2.3cm cyst 4. Left Ovary: 5.6 x 3.9 x 3.5cm cyst 5. Bilateral Adnexa: wnl 6. Posterior cul-de-sac: wnl Heterogeneous uterus with poorly visualized endometrial stripe. No free fluid in pelvic cul-de-sac. Right adnexa or ovary has stable 3.3 x 2.5 x 2.3 cm thin-walled cyst. The left ovary has stable large r 5.6 x 3.9 x 3.5 cm thin-walled cyst. Both are completely anechoic without solid component and sergio h margins. IMPRESSION: Overall stable findings. O-Rads 2 almost certainly benign lesions bilaterally. Advise fol low-up ultrasound in one year time to document stability.
== END | disposition home or self-care (01) ==
LOC: RADUSWWP 08:01
PROVIDERS: ATTEND Internal Medicine Hematology & Oncology
DX: N85.8 Other specified noninflammatory disorders of uterus (principal)
CPT/HCPCS: 76830

== ENCOUNTER → 2021-08-31 | Outpatient (CLI) | payer MEDICARE, OTHER ==
--- NOTE | 2021-08-31 14:22 | P.PN ---
Progress Note - Text Progress Note Date: 08/31/21 Status post bilateral mastectomy with a sentinel node biopsy on the left; 06-19-21 Nancy is a 55-year-old white female status post bilateral mastectomy with left sentinel node biopsy on . She is status post neoadjuvant chemotherapy. She tolerated the surgery without difficulty. Her drains then removed. 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 She had some minimal drainage from the left side as well. Both wounds were debrided and packed on the right side. We received a phone call from her daughter who is changing the packing earlier today that she had some increased erythema and tenderness of the left incision. Was therefore requested that she come in for evaluation. The patient herself states that it did not seem more tender. He has not had any fever or chills. 08-09-21 patient is seen today regarding her bilateral incisions. At this time both were granulating without difficulty. There does not appear to be any evidence of infection. The patient's packing was changed 08-14-21 The chest wall incision superficial approximately 2 cm packing change; is decreased from approximately 2-1/2 cm Left chest wall incision approximately 2 cm packing changed this is decreased from approximately 2-1/2 cm This granulation tissue both incisions no evidence of infection 08-31-21 The patient is doing well at this time. Examination of the incisions reveals on the right chest wall. The opening is approximately 1 cm x 6 mm at this time with good granulation tissue in the base The left chest wall incision is approximately 2 1/2 centimeters by 1 cm again with clean granulation tissue in the base Plan: Continue present therapy Patient will follow up with medical and radiation oncology Patient will follow appearance 6 weeks All sutures to be removed
[2021-08-31 14:28] VITALS: BP 151/82; PULSE 80; RESP 18; TEMP 98.3
== END | disposition home or self-care (01) ==
LOC: WWCWWP 12:56
PROVIDERS: ATTEND Surgery
DX: Z53.9 Procedure and treatment not carried out, unspecified reason (principal)

== ENCOUNTER → 2021-10-04 | Outpatient (CLI) | payer MEDICARE, OTHER ==
[2021-10-04 12:37] VITALS: BP 163/97; PULSE 67; RESP 17; TEMP 97.8
--- NOTE | 2021-10-04 12:38 | P.PN ---
Progress Note - Text Progress Note Date: 10/04/21 Status post bilateral mastectomy with a sentinel node biopsy on the left; 06-19-21 Nancy is a 55-year-old white female status post bilateral mastectomy with left sentinel node biopsy on . She is status post neoadjuvant chemotherapy. She tolerated the surgery without difficulty. Her drains then removed. 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 She had some minimal drainage from the left side as well. Both wounds were debrided and packed on the right side. We received a phone call from her daughter who is changing the packing earlier today that she had some increased erythema and tenderness of the left incision. Was therefore requested that she come in for evaluation. The patient herself states that it did not seem more tender. He has not had any fever or chills. 08-09-21 patient is seen today regarding her bilateral incisions. At this time both were granulating without difficulty. There does not appear to be any evidence of infection. The patient's packing was changed 08-14-21 The chest wall incision superficial approximately 2 cm packing change; is decreased from approximately 2-1/2 cm Left chest wall incision approximately 2 cm packing changed this is decreased from approximately 2-1/2 cm This granulation tissue both incisions no evidence of infection 08-31-21 The patient is doing well at this time. Examination of the incisions reveals on the right chest wall. The opening is approximately 1 cm x 6 mm at this time with good granulation tissue in the base The left chest wall incision is approximately 2 1/2 centimeters by 1 cm again with clean granulation tissue in the base Plan: Continue present therapy Patient will follow up with medical and radiation oncology Patient will follow appearance 6 weeks All sutures to be removed 10-04-21 Patient comes at this time for reexamination of the incisions. At this time both incisions are clean and dry and well healed. The patient has no complaints. Physical exam: Bilateral chest dubose incisions clean and dry well-healed no evidence of any open wounds Patient is going to have radiation therapy and will follow up at her 4 month interval from surgery Additional CC's: Lizy French
== END | disposition home or self-care (01) ==
LOC: WWCWWP 12:07
PROVIDERS: ATTEND Surgery
DX: Z53.9 Procedure and treatment not carried out, unspecified reason (principal); Z85.3 Personal history of malignant neoplasm of breast

== ENCOUNTER → 2021-11-16 | Outpatient (CLI) | payer MEDICARE, OTHER ==
[2021-11-16 14:36] VITALS: BP 113/71; PULSE 69; RESP 18
--- NOTE | 2021-11-16 14:44 | P.PN ---
Subjective Progress Note Date: 11/16/21 Principal diagnosis: Left breast stage IIB invasive ductal carcinoma T2 KETTY-1 cM0 G3 ER+Pr+Her2- left breast cancer T2 N1 M0 ER + MT+ HER-2 negative G3 invasive ductal carcinoma stage IIB left breast Nancy is a 55-year-old white female seen in consultation for Dr. Manolo brush radiographic abnormality of the breast. She stated she felt a mass in her left breast approximately 1 month prior. It was not painful. It had not changed in size. She had a bilateral mammogram performed on 55. This showed an area of increased density upper quadrant right breast as well as pleomorphic calcifications in the spiculated mass in the left breast approximately 5.4 cm from the nipple. Bilateral breast ultrasounds were performed. Right breast ultrasound 0.7 x 0.6 cm lesion at the 7 to 8 o'clock position for which a biopsy was recommended Left breast 2.5 x 1.6 cm irregular lesion at 3:00 for which ultrasound-guided core biopsy was recommended as well as enlarged lymph nodes for which biopsy was recommended. She had never had any procedures on her breast before. She did not complain of any trauma or infection in her breast. She underwent an ultrasound-guided core biopsy of 2 areas of concern in the left breast and 638[address]. Both revealed invasive high-grade ductal carcinoma. The third area was recommended for biopsy in the right breast which was canceled by radiology. An MRI of the breast was recommended which was not performed. [place] [address]. This revealed biopsy-proven malignancy in the left breast and axilla. Nonspecific right axillary lymph nodes no additional metastatic disease seen. There was a 5.7 cm left adnexal or ovarian lesion nonspecific. Pelvic ultrasound was recommended. This was performed on 620 521. This revealed bilateral ovarian cyst. Her case was presented at tumor board on 6121. Recommendations included PET scan MRI of the breast neoadjuvant chemotherapy. She had an Oncotype DX performed and her recurrence score was 31. She started chemotherapy on December 15 to January 26 she received Adriamycin/Cytoxan, and has now transitioned to Taxol on 02-08-21. She has to 1 kg sessions for the Taxol. Was diagnosed with a DVT in her left lower extremity on and started on xeralto. Her left breast was very firm, there is a small pustule near the nipple areolar complex from which she states she leaks milky substance. She completed 12 weeks of francesca-adjuvant taxol on 06-08-21 06-19-21 bilateral mastectomies and left sentinal node biopsy: Pathology revealed residual DCIS, no residual invasive cancer in the breast or axilla KI67 was 30-40% June 2021 she was started on anastrozole Developed infection in the chest wall which delayed radiation therapy the radiation was started last week She is tolerating this without difficulty Caffeine: one pop/day nicotine: 1 PPD/30 years chocolate: occasional Family history: none Hormonal history: Menarche: 14 , breast fed: no, age at first : 24 no periods for 7 years hormones: none BCP: none Surgical history: Right knee Gallbladder core biopsy lwft breast port a cath placed Medical history: Schizophrenia Diabetes/on metformin High cholesterol Social History: Nicotine: 1/2 pack per day for 30 years Alcohol: Negative Drugs: Negative - Constitutional Constitutional: Denies chills, Denies fever - EENT Eyes: denies blurred vision, denies pain Ears: deny: decreased hearing, tinnitus Ears, nose, mouth and throat: Denies headache, Denies sore throat - Breasts Breasts: bilateral: as per HPI - Cardiovascular Cardiovascular: Denies chest pain, Denies shortness of breath - Respiratory Comment: smoker Respiratory: Denies cough - Gastrointestinal Gastrointestinal: Denies abdominal pain, Denies diarrhea, Denies nausea, Denies vomiting - Genitourinary (Female) Genitourinary: Denies dysuria, Denies hematuria - Menstruation Menstruation: Reports postmenopausal - Musculoskeletal Musculoskeletal: Denies myalgias - Integumentary Integumentary: Denies pruritus, Denies rash - Neurological Neurological: Denies numbness, Denies weakness - Psychiatric Comment: Schizophrenia Psychiatric: Denies anxiety, Denies depression - Endocrine Comment: diabetes Endocrine: Denies fatigue, Denies weight change - Hematologic/Lymphatic Comment: none - Allergic/Immunologic Allergic/Immunologic: Reports as per HPI Objective - Constitutional General appearance: Present: cooperative - EENT Eyes: Present: EOMI ENT: Present: hearing grossly normal - Neck Neck: Present: normal ROM - Respiratory Respiratory: bilateral: CTA - Cardiovascular Heart sounds: normal: S1, S2 - Gastrointestinal General gastrointestinal: Present: soft - Integumentary Integumentary: Present: normal turgor - Musculoskeletal Musculoskeletal: Present: gait normal - Psychiatric Psychiatric: Present: A&O x's 3, appropriate affect, intact judgment & insight - Additional findings Additional findings: Chest wall exam: Port in the right chest wall Inspection: Bilateral chest wall incisions clean and dry well-healed Palpation: Right chest: No evidence of any masses or nodules of concern Right axilla: No adenopathy of concern Left chest: No evidence of any cancer or nodules of concern Left axilla: No adenopathy of concern Assessment and Plan Assessment: Impression: Schizophrenia Diabetes/on metformin High cholesterol Patient status post bilateral mastectomy for a stage IIB left breast cancer Patient is presently on Annestrazole Patient is presently receiving radiation therapy to the left chest wall Plan: Follow-up care 4 months Continue to follow up with medical oncology Continue anastrozole Follow-up with radiation oncology CC: Dr. Marianela Sun
== END | disposition home or self-care (01) ==
LOC: WWCWWP 13:47
PROVIDERS: ATTEND Surgery
DX: Z53.9 Procedure and treatment not carried out, unspecified reason (principal)

== ENCOUNTER → 2021-12-20 | Outpatient (CLI) | payer MEDICARE, OTHER ==
--- NOTE | 2021-12-20 15:06 | BD ---
EXAMINATION TYPE: Axial Bone Density DATE OF EXAM: 12/20/2021 COMPARISON: NONE CLINICAL HISTORY: 56 years year old Female. ICD-10 CODE: Z51.0 ENCOUNTER FOR ANTINEOPLASTIC RADIATIO N THERA Height: 64 Weight: 183.6 FRAX RISK QUESTIONS: Alcohol (3 or more units per day): NO Family History (Parent hip fracture): NO Glucocorticoids (More than 3mos): NO History of Fracture in Adulthood: NO Secondary Osteoporosis: 1. Type 1 Diabetes: NO 2. Hyperthyroidism: NO 3. Menopause before 45: NO 4. Malnutrition: NO 5. Chronic liver disease: NO Rheumatoid Arthritis: NO Current Tobacco Use: YES RISK FACTORS HISTORY OF: Hip Fracture (Right/Left): NO Spine Fracture: NO History of Wrist Fracture: NO Surgery to Spine/Hip(right/left)/Wrist (right/left): NO Family History of Osteoporosis: NO Active: YES Diet low in dairy products/other sources of calcium: NO Postmenopausal woman: YES Take estrogen and/or progesterone medications: YES How long: ANASTRAZOLE PAST YEAR Lost more than 2 inches in height since high school: NO Frequent falls: NO Poor Health: NO Hyperparathyroidism: NO Adrenal Insufficiency: NO MEDICATIONS: Prednisone or other steroids: NO Thyroid Medications: NO Osteoporosis Medications: NO Additional Medications: FENOFIBRATE, LOSARTAN, METFORMIN, SIMVASTATIN, ANASTRAZOLE, BP MEDS, VIT D, Additional History: BREAST CANCER 2020 WITH CHEMO AND RADIATION EXAM MEASUREMENTS: Bone mineral densitometry was performed using the [employer] System. Bone mineral density as measured about the Lumbar spine is: ----- L1-L4(G/cm2): 0.997 T Score Values are as follows: ----- L1: -1.5 ----- L2: -1.7 ----- L3: -1.2 ----- L4: -1.8 ----- L1-L4: -1.5 BASELINE STUDY Bone mineral density about the R hip (g/cm2): 1.014 Bone mineral density about the L hip (g/cm2) 0.936 T Score values are as follows: -----R Neck: -0.2 -----L Neck: -0.7 -----R Total: -0.5 -----L Total: -0.8 BASELINE STUDY FRAX%s: The graph provided illustrates a 4.9% chance for a major osteoporotic fx and a 0.3% chance fo r the hips probability for fx in 10 years time. IMPRESSION: Osteopenia (T Score between -2.5 and -1). There is slightly increased risk of fracture and the patient may be considered for treatment. Re-Screen 2-5 years. NOTE: T-SCORE=SD OF THE YOUNG ADULT MEAN.
== END | disposition home or self-care (01) ==
LOC: RADBDWWP 13:55
PROVIDERS: ATTEND Internal Medicine
DX: Z51.0 Encounter for antineoplastic radiation therapy (principal)
CPT/HCPCS: 77080

== ENCOUNTER 2021-12-28 08:23 | Day surgery (SDC) | payer MEDICARE, OTHER ==
[~2021-12-28 08:23] MED LIST changes: +ACETAMINOPHEN TAB 500 MG TAB PO PRN; +LACTATED RINGERS 1,000 ML IV SCH; -ONDANSETRON 4 MG/2 ML VIAL IVP ONE; -Pre Op ABX Message 1 EACH MISC MISCELLANE ONE; -SCOPOLAMINE 1.5MG/72HR PATCH TRANSDERM ONE
[2021-12-28 08:56] VITALS: TEMP 96.9
[2021-12-28 09:16] LABS: Glucose,Whole Blood 144 mg/dL (70-110)
--- NOTE | 2021-12-28 09:20 | P.GSHP ---
History of Present Illness H&P Date: 12/28/21 Chief Complaint: Left breast cancer 56-year-old female here today for Port-A-Cath removal. Port was placed through sleep for chemotherapy after diagnosis of left breast cancer. No issues with the port. Past Medical History Past Medical History: Cancer, COPD, Diabetes Mellitus, Deep Vein Thrombosis (DVT), Hyperlipidemia, Hypertension Additional Past Medical History / Comment(s): "body tremors"-states caused by her psych med. she takes monthly, 10/23/20 LT dx breast invasive high grade ductal carcinoma(chemo 12/15/20-01/26/21) & radiation, DVT 04/12/21, osteopenia History of Any Multi-Drug Resistant Organisms: None Reported Past Surgical History: Breast Surgery, Section, Cholecystectomy, Orthopedic Surgery, Tubal Ligation Additional Past Surgical History / Comment(s): LT lateral breast and LT axilla biopsy 10/23/20, arthroscopy left knee, pina mastectomy, C/S x2 Past Anesthesia/Blood Transfusion Reactions: No Reported Reaction Smoking Status: Current every day smoker Medications and Allergies Home Medications Medication Instructions Recorded Confirmed Type ARIPiprazole [Abilify Maintena] 300 mg IM QMONTHLY 12/31/16 12/28/21 History Fenofibrate Nanocrystallized 54 mg PO QAM 12/31/16 12/28/21 History [Fenofibrate] Simvastatin [Zocor] 20 mg PO HS 12/31/16 12/28/21 History metFORMIN HCL 500 mg PO QAM 10/16/20 12/28/21 History traZODone HCL 100 mg PO HS 10/16/20 12/28/21 History Losartan [Cozaar] 50 mg PO DAILY 06/28/21 12/27/21 History Anastrozole [Arimidex] 1 mg PO DAILY 11/16/21 12/28/21 History Trihexyphenidyl [Artane] 2 mg PO BID 12/27/21 12/28/21 History amLODIPine [Norvasc] 5 mg PO BID 12/27/21 12/27/21 History Allergies Allergy/AdvReac Type Severity Reaction Status Date / Time No Known Allergies Allergy Verified 12/28/21 08:56 Surgical - Exam Vital Signs Temp Pulse Resp BP Pulse Ox 96.9 F L 68 18 101/58 95 12/28/21 08:55 12/28/21 08:55 12/28/21 08:55 12/28/21 08:55 12/28/21 08:55 Physical exam: General: Well-developed, well-nourished HEENT: Normocephalic, sclerae nonicteric Abdomen: Nontender, nondistended Extremities: No edema Neuro: Alert and oriented Results - Labs Abnormal Lab Results - Last 24 Hours (Table) 12/28/21 Range/Units 09:07 POC Glucose (mg/dL) 144 H (70-110) mg/dL Assessment and Plan (1) Cancer of left breast Narrative/Plan: Will proceed with Port-A-Cath removal at this time. Current Visit: Yes Status: Acute Code(s): C50.912 - MALIGNANT NEOPLASM OF UNSPECIFIED SITE OF LEFT FEMALE BREAST SNOMED Code(s): 447547324
[2021-12-28] MEDS ORDERED: KETOROLAC 15 MG/ML 1 ML VIAL ONE (10:08)
[2021-12-28] MEDS ORDERED: MIDAZOLAM 2 MG/2 ML VIAL ONE (10:08)
[2021-12-28] MEDS ORDERED: PROPOFOL 10 MG/ML 20 ML VIAL IV ONE (10:08)
[2021-12-28] MEDS ORDERED: fentaNYL (PF) 50 MCG/ML 2 ML AMP ONE (10:08)
[2021-12-28] MEDS ORDERED: LIDOCAINE 1% INJ 10MG/ML (20 ML MDV) SQ ONE ×2 (10:19)
[2021-12-28] MEDS ORDERED: NALOXONE 0.4 MG/ML 1 ML VIAL IV PRN (10:39)
--- NOTE | 2021-12-28 10:41 | P.OP ---
Date of Procedure: 12/28/21 Procedure(s) Performed: PREOPERATIVE DIAGNOSIS: Breast cancer POSTOPERATIVE DIAGNOSIS: Same PROCEDURE: Port-A-Cath removal SURGEON: Maggi EBL: Minimal ANESTHESIA: Sedation COMPLICATIONS: None OPERATIVE PROCEDURE: Patient was placed in the supine position. The patient was sedated per anesthesia that time. The chest was prepped and draped in the usual sterile fashion. The skin was localized with Marcaine solution. The previous incision was excised using a scalpel. The port was easily excised using ac commodation of blunt dissection sharp dissection and electrocautery. The subcutaneous tissues were reapproximated using 3-0 Vicryl sutures. The skin was reapproximated using 4-0 Monocryl sutures. Skin glue was then applied. DISPOSITION: Stable to recovery room
[2021-12-28 11:03] VITALS: BP 120/79; PULSE 72; RESP 16
== END 2021-12-28 11:15 | disposition home or self-care (01) ==
LOC: OR 08:23
PROVIDERS: ATTEND Surgery
DX: Z45.2 Encounter for adjustment and management of vascular access device (principal); F17.210 Nicotine dependence, cigarettes, uncomplicated; J44.9 Chronic obstructive pulmonary disease, unspecified; E11.9 Type 2 diabetes mellitus without complications; F20.9 Schizophrenia, unspecified; E78.5 Hyperlipidemia, unspecified; I10 Essential (primary) hypertension; N83.209 Unspecified ovarian cyst, unspecified side; F32.A Depression, unspecified; Z85.3 Personal history of malignant neoplasm of breast; Z92.21 Personal history of antineoplastic chemotherapy; Z79.899 Other long term (current) drug therapy; Z79.84 Long term (current) use of oral hypoglycemic drugs; Z79.811 Long term (current) use of aromatase inhibitors; Z90.13 Acquired absence of bilateral breasts and nipples; Z90.49 Acquired absence of other specified parts of digestive tract; Z98.891 History of uterine scar from previous surgery; Z86.718 Personal history of other venous thrombosis and embolism; Z98.890 Other specified postprocedural states; Z98.51 Tubal ligation status
CPT/HCPCS: 36590; C1788; J2250; J1100; J2001; J3010; J1885; J2704; J1790; J1644

== ENCOUNTER → 2022-03-22 | Outpatient (CLI) | payer MEDICARE, OTHER ==
[2022-03-22 14:22] VITALS: BP 103/59; PULSE 82; RESP 17; TEMP 97.8
--- NOTE | 2022-03-22 14:36 | P.PN ---
Subjective Progress Note Date: 03/22/22 Principal diagnosis: stage IIB left breast cancer Left breast stage IIB invasive ductal carcinoma T2 KETTY-1 cM0 G3 ER+Pr+Her2- left breast cancer T2 N1 M0 ER + MI+ HER-2 - G3 invasive ductal carcinoma stage IIB left breast Nancy is a 56-year-old white female who was seen in consultation for Dr. French regarding radiographic abnormality of the breast. She stated she felt a mass in her left breast approximately 1 month prior. It was not painful. It had not changed in size. She had a bilateral mammogram performed on 55. This showed an area of increased density upper quadrant right breast as well as pleomorphic calcifications in the spiculated mass in the left breast approximately 5.4 cm from the nipple. Bilateral breast ultrasounds were performed. Right breast ultrasound 0.7 x 0.6 cm lesion at the 7 to 8 o'clock position for which a biopsy was recommended Left breast 2.5 x 1.6 cm irregular lesion at 3:00 for which ultrasound-guided core biopsy was recommended as well as enlarged lymph nodes for which biopsy was recommended. She had never had any procedures on her breast before. She did not complain of any trauma or infection in her breast. She underwent an ultrasound-guided core biopsy of 2 areas of concern in the left breast and 65963. Both revealed invasive high-grade ductal carcinoma. The third area was recommended for biopsy in the right breast which was canceled by radiology. An MRI of the breast was recommended which was not performed. [place] [address]. This revealed biopsy-proven malignancy in the left breast and axilla. Nonspecific right axillary lymph nodes no additional metastatic disease seen. There was a 5.7 cm left adnexal or ovarian lesion nonspecific. Pelvic ultrasound was recommended. This was performed on 859 521. This revealed bilateral ovarian cyst. Her case was presented at tumor board on 6121. Recommendations included PET scan MRI of the breast neoadjuvant chemotherapy. She had an Oncotype DX performed and her recurrence score was 31. She started chemotherapy on December 15 to January 26 she received Adriamycin/Cytoxan, and transitioned to Taxol on 02-08-21. Was diagnosed with a DVT in her left lower extremity on and started on xeralto. Her left breast was very firm, there was a small pustule near the nipple areolar complex from which she states she leaks milky substance. She completed 12 weeks of francesca-adjuvant taxol on 06-08-21 06-19-21 bilateral mastectomies and left sentinal node biopsy: Pathology revealed residual DCIS, no residual invasive cancer in the breast or axilla KI67 was 30-40% June 2021 she was started on anastrozole Developed infection in the chest wall which delayed radiation therapy the radiation completed December 2021 started abemaciclib (added to anastrazole) on 02-07-22 Note 03-13-22 reviewed The patient has not complaints at this time Caffeine: one pop/day nicotine: 1 PPD/30 years chocolate: occasional Family history: none Hormonal history: Menarche: 14 , breast fed: no, age at first : 24 no periods for 7 years hormones: none BCP: none Surgical history: Right knee Gallbladder core biopsy lwft breast port a cath placed Medical history: Schizophrenia Diabetes/on metformin High cholesterol Social History: Nicotine: 1/2 pack per day for 30 years Alcohol: Negative Drugs: Negative - Constitutional Constitutional: Denies chills, Denies fever - EENT Eyes: denies blurred vision, denies pain Ears: deny: decreased hearing, tinnitus Ears, nose, mouth and throat: Denies headache, Denies sore throat - Breasts Breasts: bilateral: as per HPI - Cardiovascular Cardiovascular: Denies chest pain, Denies shortness of breath - Respiratory Comment: smoker Respiratory: Denies cough - Gastrointestinal Gastrointestinal: Denies abdominal pain, Denies diarrhea, Denies nausea, Denies vomiting - Genitourinary (Female) Genitourinary: Denies dysuria, Denies hematuria - Menstruation Menstruation: Reports postmenopausal - Musculoskeletal Musculoskeletal: Denies myalgias - Integumentary Integumentary: Denies pruritus, Denies rash - Neurological Neurological: Denies numbness, Denies weakness - Psychiatric Comment: Schizophrenia Psychiatric: Denies anxiety, Denies depression - Endocrine Comment: diabetes Endocrine: Denies fatigue, Denies weight change - Hematologic/Lymphatic Comment: none - Allergic/Immunologic Allergic/Immunologic: Reports as per HPI Objective - Constitutional General appearance: Present: cooperative - EENT Eyes: Present: EOMI ENT: Present: hearing grossly normal - Neck Neck: Present: normal ROM - Respiratory Respiratory: bilateral: CTA - Cardiovascular Heart sounds: normal: S1, S2 - Gastrointestinal General gastrointestinal: Present: soft - Integumentary Integumentary: Present: normal turgor - Musculoskeletal Musculoskeletal: Present: gait normal - Psychiatric Psychiatric: Present: A&O x's 3, appropriate affect, intact judgment & insight - Additional findings Additional findings: Chest wall exam: Port in the right chest wall removed Inspection: Bilateral chest wall incisions clean and dry well-healed Palpation: Right chest: No evidence of any masses or nodules of concern Right axilla: No adenopathy of concern Left chest: No evidence of any cancer or nodules of concern Left axilla: No adenopathy of concern Assessment and Plan Assessment: Assessment and Plan Assessment: Impression: Schizophrenia Diabetes/on metformin High cholesterol Patient status post bilateral mastectomy for a stage IIB left breast cancer Patient is presently on Annestrazole/abemaciclib Patient completed radiation therapy to the chest wall Plan: Follow-up care 6months Continue to follow up with medical oncology Continue anastrozole/ abemaciclib Follow-up with radiation oncology CC: [facility]
== END ==
LOC: WWCWWP 13:37
PROVIDERS: ATTEND Surgery
DX: E11.9 Type 2 diabetes mellitus without complications (principal); F20.9 Schizophrenia, unspecified; E78.00 Pure hypercholesterolemia, unspecified; Z90.12 Acquired absence of left breast and nipple; Z79.84 Long term (current) use of oral hypoglycemic drugs; F17.200 Nicotine dependence, unspecified, uncomplicated; E66.9 Obesity, unspecified; Z68.29 Body mass index [BMI] 29.0-29.9, adult

== ENCOUNTER → 2022-10-25 | Outpatient (CLI) | payer MEDICARE, OTHER ==
[2022-10-25 13:36] VITALS: BP 88/57; PULSE 65; RESP 16
--- NOTE | 2022-10-25 13:54 | P.PN ---
Subjective Progress Note Date: 10/25/22 stage IIB left breast cancer invasive ductal carcinoma T2N1M0 G3 ER+Pr+Her2- l Nancy is a 56-year-old white female who was seen in consultation for Dr. French regarding radiographic abnormality of the breast. She stated she felt a mass in her left breast approximately 1 month prior. It was not painful. It had not changed in size. She had a bilateral mammogram performed on 5520. This showed an area of increased density upper quadrant right breast as well as pleomorphic calcifications in the spiculated mass in the left breast approximately 5.4 cm from the nipple. Bilateral breast ultrasounds were performed. Right breast ultrasound 0.7 x 0.6 cm lesion at the 7 to 8 o'clock position for which a biopsy was recommended Left breast 2.5 x 1.6 cm irregular lesion at 3:00 for which ultrasound-guided core biopsy was recommended as well as enlarged lymph nodes for which biopsy was recommended. She had never had any procedures on her breast before. She did not complain of any trauma or infection in her breast. She underwent an ultrasound-guided core biopsy of 2 areas of concern in the left breast and 92100. Both revealed invasive high-grade ductal carcinoma. The third area was recommended for biopsy in the right breast which was canceled by radiology. An MRI of the breast was recommended which was not performed. A PET scan was done on . This revealed biopsy-proven malignancy in the left breast and axilla. Nonspecific right axillary lymph nodes no additional metastatic disease seen. There was a 5.7 cm left adnexal or ovarian lesion nonspecific. Pelvic ultrasound was recommended. This was performed on . This revealed bilateral ovarian cyst. Her case was presented at tumor board on 6120. Recommendations included PET scan MRI of the breast neoadjuvant chemotherapy. She had an Oncotype DX performed and her recurrence score was 31. She started chemotherapy on December 15 to January 26 she received Adriamycin/Cytoxan, and transitioned to Taxol on 02-08-21. Was diagnosed with a DVT in her left lower extremity on and started on xeralto. Her left breast was very firm, there was a small pustule near the nipple areolar complex from which she states she leaks milky substance. She completed 12 weeks of francesca-adjuvant taxol on 06-08-21 06-19-21 bilateral mastectomies and left sentinal node biopsy: Pathology revealed residual DCIS, no residual invasive cancer in the breast or axilla KI67 was 30-40% June 2021 she was started on anastrozole Developed infection in the chest wall which delayed radiation therapy the radiation completed December 2021 started abemaciclib (added to anastrazole) on 02-07-22 Note 03-13-22 reviewed The patient has not complaints at this time 10-25-[address] Baird reviewed 08-28-22 She is not complaining of any lumps masses or nodules of concern on her chest wall. She is taking verzenio and anastrazole Caffeine: one pop/day nicotine: 1 PPD/30 years chocolate: occasional Family history: none Hormonal history: Menarche: 14 , breast fed: no, age at first : 24 no periods for 7 years hormones: none BCP: none Surgical history: Right knee Gallbladder core biopsy lwft breast port a cath placed Medical history: Schizophrenia Diabetes/on metformin High cholesterol Social History: Nicotine: 1/2 pack per day for 30 years Alcohol: Negative Drugs: Negative - Constitutional Constitutional: Denies chills, Denies fever - EENT Eyes: denies blurred vision, denies pain Ears: deny: decreased hearing, tinnitus Ears, nose, mouth and throat: Denies headache, Denies sore throat - Breasts Breasts: bilateral: as per HPI - Cardiovascular Cardiovascular: Denies chest pain, Denies shortness of breath - Respiratory Comment: smoker Respiratory: Denies cough - Gastrointestinal Gastrointestinal: Denies abdominal pain, Denies diarrhea, Denies nausea, Denies vomiting - Genitourinary (Female) Genitourinary: Denies dysuria, Denies hematuria - Menstruation Menstruation: Reports postmenopausal - Musculoskeletal Musculoskeletal: Denies myalgias - Integumentary Integumentary: Denies pruritus, Denies rash - Neurological Neurological: Denies numbness, Denies weakness - Psychiatric Comment: Schizophrenia Psychiatric: Denies anxiety, Denies depression - Endocrine Comment: diabetes Endocrine: Denies fatigue, Denies weight change - Hematologic/Lymphatic Comment: none - Allergic/Immunologic Allergic/Immunologic: Reports as per HPI Objective - Vital Signs Vital signs: Vital Signs Temp Pulse 65 10/25/22 13:30 Resp 16 10/25/22 13:30 BP 88/57 10/25/22 13:30 Pulse Ox 95 10/25/22 13:30 FiO2 Intake & Output 10/24/22 10/25/22 10/25/22 18:59 06:59 18:59 Weight 81.647 kg - Constitutional General appearance: Present: cooperative - EENT Eyes: Present: EOMI ENT: Present: hearing grossly normal - Neck Neck: Present: normal ROM - Respiratory Respiratory: bilateral: CTA - Cardiovascular Rhythm: regular Heart sounds: normal: S1, S2 - Integumentary Integumentary: Present: normal turgor - Musculoskeletal Musculoskeletal: Present: gait normal - Psychiatric Psychiatric: Present: A&O x's 3, appropriate affect, intact judgment & insight - Additional findings Additional findings: Chest wall exam: Port in the right chest wall removed Inspection: Bilateral chest wall incisions clean and dry well-healed Palpation: Right chest: No evidence of any masses or nodules of concern Right axilla: No adenopathy of concern Left chest: No evidence of any cancer or nodules of concern Left axilla: No adenopathy of concern Assessment and Plan Assessment: Impression: Schizophrenia Diabetes/on metformin High cholesterol Patient status post bilateral mastectomy for a stage IIB left breast cancer, 06-19-21 Patient is presently on Annestrazole/abemaciclib Patient completed radiation therapy to the chest wall Plan: Follow-up here 6months Continue to follow up with medical oncology Continue anastrozole/ abemaciclib Follow-up with radiation oncology CC: [facility]
== END ==
LOC: WWCWWP 13:12
PROVIDERS: ATTEND Surgery
DX: Z85.3 Personal history of malignant neoplasm of breast (principal); Z01.419 Encounter for gynecological examination (general) (routine) without abnormal findings; F20.9 Schizophrenia, unspecified; E11.9 Type 2 diabetes mellitus without complications; Z79.84 Long term (current) use of oral hypoglycemic drugs; E78.00 Pure hypercholesterolemia, unspecified; F17.200 Nicotine dependence, unspecified, uncomplicated

== ENCOUNTER 2023-02-11 08:03 | Day surgery (SDC) | payer MEDICARE, OTHER ==
[~2023-02-11 08:03] MED LIST changes: -ACETAMINOPHEN TAB 500 MG TAB PO PRN; -DEXAMETHASONE SOD PHOSPHATE 4 MG/ML 1 ML VIAL IV ONE; -HEPARIN SODIUM,PORCINE/PF 5,000 UNIT/0.5 ML SYRINGE SQ PRN; -HYDROmorphone 0.5 MG/0.5 ML SYRINGE IVP PRN
[2023-02-11 08:37] VITALS: TEMP 97
[2023-02-11 08:43] LABS: Glucose,Whole Blood 108 mg/dL (70-110)
--- NOTE | 2023-02-11 09:06 | P.GSHP ---
History of Present Illness H&P Date: 02/11/23 Chief Complaint: Colon cancer screening 57-year-old female here for colonoscopy. She has not had one before. No bowel complaints. No family history of colon cancer. Past Medical History Past Medical History: Cancer, Diabetes Mellitus, Deep Vein Thrombosis (DVT), Hyperlipidemia Additional Past Medical History / Comment(s): Routine colonoscopy. NIDDM diet controlled, "body tremors, caused from one of medications", 10/23/20 LT dx breast invasive high grade ductal carcinoma(chemo 12/15/20-01/26/21), DVT 04/12/21 in L leg, History of Any Multi-Drug Resistant Organisms: None Reported Past Surgical History: Section, Cholecystectomy, Orthopedic Surgery, Tubal Ligation Additional Past Surgical History / Comment(s): LT lateral breast mastectomy and LT axilla biopsy 10/23/20, arthroscopy left knee Past Anesthesia/Blood Transfusion Reactions: Postoperative Nausea & Vomiting (PONV) Smoking Status: Current every day smoker - Past Family History Mother Family Medical History: No Reported History Medications and Allergies Home Medications Medication Instructions Recorded Confirmed Type Fenofibrate Nanocrystallized 54 mg PO QAM 12/31/16 02/05/23 History [Fenofibrate] Simvastatin [Zocor] 20 mg PO HS 12/31/16 02/05/23 History traZODone HCL 100 mg PO HS 10/16/20 02/05/23 History Losartan [Cozaar] 50 mg PO BID 06/28/21 02/05/23 History Anastrozole [Arimidex] 1 mg PO QAM 11/16/21 02/05/23 History Trihexyphenidyl [Artane] 2 mg PO BID 12/27/21 02/05/23 History amLODIPine [Norvasc] 5 mg PO BID 12/27/21 02/05/23 History Abemaciclib [Verzenio] 150 mg PO QAM 02/05/23 02/05/23 History Cholecalciferol [Vitamin D3 (125 125 mcg PO QAM 02/05/23 02/05/23 History Mcg = 5000 Iu)] calcitrioL [Calcitriol] 0.5 mg PO QAM 02/05/23 02/05/23 History Allergies Allergy/AdvReac Type Severity Reaction Status Date / Time No Known Allergies Allergy Verified 09/05/23 08:35 Surgical - Exam Vital Signs Temp Pulse Resp BP Pulse Ox 97.0 F L 76 20 114/62 97 02/11/23 08:36 02/11/23 08:36 02/11/23 08:36 02/11/23 08:36 02/11/23 08:36 Physical exam: General: Well-developed, well-nourished HEENT: Normocephalic, sclerae nonicteric Abdomen: Nontender, nondistended Extremities: No edema Neuro: Alert and oriented Assessment and Plan (1) Colon cancer screening Narrative/Plan: Will proceed with colonoscopy at this time. Current Visit: Yes Status: Acute Code(s): Z12.11 - ENCOUNTER FOR SCREENING FOR MALIGNANT NEOPLASM OF COLON SNOMED Code(s): 107569285
[2023-02-11] MEDS ORDERED: PROPOFOL 10 MG/ML 20 ML VIAL IV ONE (09:09)
[2023-02-11] MEDS ORDERED: LIDOCAINE 2% INJ 20 MG/ML (2 ML VIAL) ONE (09:09)
--- NOTE | 2023-02-11 09:25 | P.PCN ---
Date of Procedure: 02/11/23 Procedure(s) Performed: PREOPERATIVE DIAGNOSIS: Colon cancer screening POSTOPERATIVE DIAGNOSIS: Normal exam PROCEDURE: Colonoscopy ANESTHESIA: MAC SURGEON: Ever Tay M.D. SPECIMENS: None ENDOSCOPIC PROCEDURE: The patient was placed on the endoscopy table in the left decubitus position. The Olympus colonoscope was inserted into the anus and passed under direct visualization to the base of the cecum. The appendiceal orifice was visualized. From that point the scope was slowly withdrawn inspecti ng all surfaces carefully. There were no neoplastic inflammatory or polypoid lesions throughout the cecum, ascending, transverse, descending, sigmoid and rectum. There was no visible diverticulosis noted. Digital rectal examination was normal. The patient was taken to the recovery room in stable condition per anesthesia guidelines. RECOMMENDATIONS: Resume diet. Repeat colonoscopy 10 years.
[2023-02-11 09:36] VITALS: RESP 16
[2023-02-11 09:46] VITALS: BP 116/66; PULSE 71
== END 2023-02-11 10:08 | disposition home or self-care (01) ==
LOC: ORWHC2ENDO 08:03
PROVIDERS: ATTEND Surgery
DX: Z12.11 Encounter for screening for malignant neoplasm of colon (principal); E11.9 Type 2 diabetes mellitus without complications; I10 Essential (primary) hypertension; E78.5 Hyperlipidemia, unspecified; F17.210 Nicotine dependence, cigarettes, uncomplicated; Z90.49 Acquired absence of other specified parts of digestive tract; Z79.899 Other long term (current) drug therapy
CPT/HCPCS: 45378; J2704; J2001

== ENCOUNTER → 2023-02-17 | Outpatient (CLI) | payer MEDICARE, OTHER ==
--- NOTE | 2023-02-20 08:53 | US ---
EXAMINATION TYPE: US pelvis complete transvag DATE OF EXAM: 02/17/2023 COMPARISON: NONE CLINICAL INDICATION: Female, 57 years old with history of C50.812 N85.8 OVARIAN CYST; know left ovari an cyst, not symptomatic TECHNIQUE: TA/TV. Transabdominal sonographic images of the pelvis were acquired. Transvaginal sono graphic images Date of LMP: 2 years ago EXAM MEASUREMENTS: Uterus: 7.4 x 4.5 x 3.6 cm Endometrial Stripe: 0.2 cm Right Ovary: 3.3 x 2.5 x 1.8 cm Left Ovary: 4.2 x 3.2 x 2.8 cm 1. Uterus: Anteverted wnl 2. Endometrium: wnl 3. Right Ovary: 1.6 x 1.9 x 1.6cm simple appearing cyst, decreased in size from previous 4. Left Ovary: 3.9 x 2.3 x 3.1cm simple appearing cyst, decreased in size from previous 5. Bilateral Adnexa: wnl 6. Posterior cul-de-sac: wnl IMPRESSION: 1. Bilateral simple appearing ovarian cysts that have decreased in size from prior. 2. No evidence for acute process. 3. Endometrium within normal limits for thickness.
== END | disposition home or self-care (01) ==
LOC: RADUSWWP 08:42
PROVIDERS: ATTEND Internal Medicine Hematology & Oncology
DX: C50.812 Malignant neoplasm of overlapping sites of left female breast (principal); N83.201 Unspecified ovarian cyst, right side; N83.202 Unspecified ovarian cyst, left side; N85.8 Other specified noninflammatory disorders of uterus; M85.9 Disorder of bone density and structure, unspecified; R19.7 Diarrhea, unspecified; Z71.3 Dietary counseling and surveillance
CPT/HCPCS: 76830; 76856

== ENCOUNTER → 2023-02-25 | Outpatient (CLI) | payer MEDICARE, OTHER ==
--- NOTE | 2023-02-26 09:20 | US ---
EXAMINATION TYPE: US venous doppler duplex LE LT DATE OF EXAM: 02/25/2023 4:40 PM COMPARISON: 06/05/21 CLINICAL INDICATION: Female, 57 years old with history of Z86.718 HX THROMBOSIS M79.662 PAIN IN LEG; Lt calf swelling and redness x afew weeks, hx of DVT 2020 SIDE PERFORMED: Left TECHNIQUE: The lower extremity deep venous system is examined utilizing real time linear array sonog janet with graded compression, doppler sonography and color-flow sonography. VESSELS IMAGED: Common Femoral Vein Deep Femoral Vein Greater Saphenous Vein * Femoral Vein Popliteal Vein Small Saphenous Vein * Proximal Calf Veins (* superficial vessels) Left Leg: Negative for DVT IMPRESSION: No evidence of deep venous thrombosis.
== END | disposition home or self-care (01) ==
LOC: RADUSWWP 16:14
PROVIDERS: ATTEND Internal Medicine
DX: M79.662 Pain in left lower leg (principal); Z86.718 Personal history of other venous thrombosis and embolism

== ENCOUNTER → 2024-01-09 | Outpatient (CLI) | payer MEDICARE, OTHER ==
--- NOTE | 2024-01-09 11:38 | BD ---
EXAMINATION TYPE: Axial Bone Density DATE OF EXAM: 01/09/2024 CLINICAL HISTORY: 58 years old Female. ICD-10 CODE: M85.9 OSTEOPENIA Height: 63.5 Weight: 180.7 FRAX RISK QUESTIONS: Alcohol (3 or more units per day): no Family History (Parent hip fracture): no Glucocorticoids (More than 3mos): no (Ex: prednisone, prednisolone, methylprednisolone, dexamethasone, and hydrocortisone). History of Fracture in Adulthood: no Secondary Osteoporosis: 1. Type 1 Diabetes: no 2. Hyperthyroidism: no 3. Menopause before 45: no 4. Malnutrition: no 5. Chronic liver disease: no Rheumatoid Arthritis: no Current Tobacco Use: yes RISK FACTORS HISTORY OF: Hip Fracture (Right/Left): no Spine Fracture: no History of When: Surgery to Spine/Hip(right/left)/Wrist (right/left): no MEDICATIONS: Thyroid Medications: no Osteoporosis Medications: no EXAM MEASUREMENTS: Bone mineral densitometry was performed using the Aiming System. Bone mineral density as measured about the Lumbar spine is: ----- L1-L4(G/cm2): 1.060 T Score Values are as follows: ----- L1: -1.0 ----- L2: -0.9 ----- L3: -0.6 ----- L4: -1.5 ----- L1-L4: -1.0 Z Score Values are as follows: ----- L1: -0.6 ----- L2: -0.6 ----- L3: -0.3 ----- L4: -1.2 ----- L1-L4: -0.7 Bone mineral density has: increased 6.36 % since study of: 12/20/2021 Bone mineral density about the R hip (g/cm2): 0.921 Bone mineral density about the L hip (g/cm2): 0.885 T Score values are as follows: -----R Neck: -0.3 -----L Neck: -0.9 -----R Total: -0.7 -----L Total: -1.0 Z Score values are as follows: -----R Neck: 0.4 -----L Neck: -0.2 -----R Total: -0.4 -----L Total: -0.7 Bone mineral density has: decreased -2.7 % since study of: 12/20/2021 FRAX%s: The graph provided illustrates a 5.6% chance for a major osteoporotic fx and a 0.4% chance fo r the hips probability for fx in 10 years time. IMPRESSION: Normal (Values between +1 and -1 indicate normal bone mass). Consider repeating this study in 5 year s or sooner if there is some new clinical indication. NOTE: T-SCORE=SD OF THE YOUNG ADULT MEAN.
== END | disposition home or self-care (01) ==
LOC: RADBDWWP 10:31
PROVIDERS: ATTEND Internal Medicine Hematology & Oncology
DX: M85.89 Other specified disorders of bone density and structure, multiple sites (principal); C50.812 Malignant neoplasm of overlapping sites of left female breast; N85.8 Other specified noninflammatory disorders of uterus; D61.810 Antineoplastic chemotherapy induced pancytopenia; R19.7 Diarrhea, unspecified
CPT/HCPCS: 77080

== ENCOUNTER → 2024-09-04 | Outpatient (CLI) | payer MEDICARE, OTHER ==
[2024-09-04 13:31] LABS: C Reactive Protein, High Sens 5.92 mg/L (0.000-3.000)
== END | disposition home or self-care (01) ==
LOC: RADXRMAIN 07:58
PROVIDERS: ATTEND Student in an Organized Health Care Education/Training Program
DX: Z13.6 Encounter for screening for cardiovascular disorders (principal); I50.9 Heart failure, unspecified; E11.9 Type 2 diabetes mellitus without complications
CPT/HCPCS: 36415; 83036; 83880; 86141

== ENCOUNTER → 2024-10-15 | Outpatient (CLI) | payer MEDICARE, OTHER ==
--- NOTE | 2024-10-15 15:47 | CTL ---
EXAMINATION TYPE: CT Low Dose Lung DATE OF EXAM: 10/15/2024 1:17 PM COMPARISON: 03/05/2023 SCREENING VISIT: Subsequent CT DIAGNOSTIC QUALITY: Limited, but interpretable CLINICAL INDICATION: Female, 58 years old with history of Z12.2 ENCNTR SCREEN FOR MALIGNANT NEOPLASM R91.8, F/u lung screening for nicotine dependence of 1ppd x40 years, current smoker, hx of COPD and e mphysema., Lung cancer screening, History of tobacco use. TECHNIQUE: Low dose computed tomography scan was performed through the chest at 1 mm thick sections a nd reconstructed images in the coronal plane at 1 mm thick sections. Contrast used: mL of , (none if empty) Oral contrast used: (none if empty) CT DLP: 79 mGycm, Automated exposure control for dose reduction was used. CT CTDI: 2.49 mGy, Automated exposure control for dose reduction was used. FINDINGS: LUNG NODULES: None. LUNGS: COPD: Severity: None Fibrosis: Severity: None Lymph nodes: None Other findings: None RIGHT PLEURAL SPACE: Effusion: None Calcification: None Thickening: None Pneumothorax: None LEFT PLEURAL SPACE: Effusion: None Calcification: None Thickening: None Pneumothorax: None HEART: Other: Ascending thoracic aorta at the level the main pulmonary artery measures 3.6 cm. The main pul monary artery at the bifurcation measures 2.9 cm. Heart Size: Normal Coronary calcification: Mild coronary artery calcifications present. Pericardial effusion: None OTHER FINDINGS: Upper abdomen: Normal Bony thorax: Normal Supraclavicular region: Normal IMPRESSION: No suspicious changes. Metastatic neoplasm. FOLLOW UP CT CHEST RECOMMENDATION: Follow-up low-dose CT chest one year CT LUNG RAD: Lung-Rad 2 Benign Appearance or Behavior [facility], , 10/15/2024 3:45 PM
== END | disposition home or self-care (01) ==
LOC: RADCTMAIN 12:30
PROVIDERS: ATTEND Internal Medicine Pulmonary Disease
DX: Z12.2 Encounter for screening for malignant neoplasm of respiratory organs (principal); R91.8 Other nonspecific abnormal finding of lung field; J44.9 Chronic obstructive pulmonary disease, unspecified; J43.9 Emphysema, unspecified; Z87.891 Personal history of nicotine dependence
CPT/HCPCS: 71271

== ENCOUNTER 2024-11-27 16:03 | Emergency (ER) | payer MEDICARE, OTHER ==
--- NOTE | 2024-11-27 16:38 | ED ---
Extremity Problem HPI - General Chief complaint: Extremity Problem,Nontraumatic Stated complaint: L Leg issues/Soreness Time Seen by Provider: 11/27/24 16:08 Source: patient, RN notes reviewed Mode of arrival: ambulatory Limitations: no limitations - History of Present Illness Initial comments: This is a 59-year-old female who presents to the emergency department for left calf pain and discoloration. States that for the last several days she noticed some discoloration and more prominent veins to her left calf making it appear darker than the other one. She has also noticed that it feels sore. Denies any injuries. She does have a history of a DVT 3 or 4 years ago. Unsure what ultimately caused it. Not currently taking any blood thinners. Denies any chest pain or shortness of breath. - Related Data Home Medications Medication Instructions Recorded Confirmed Fenofibrate Nanocrystallized 54 mg PO QAM 12/31/16 02/05/23 [Fenofibrate] Simvastatin [Zocor] 20 mg PO HS 12/31/16 02/05/23 traZODone HCL 100 mg PO HS 10/16/20 02/05/23 Losartan [Cozaar] 50 mg PO BID 06/28/21 02/05/23 Anastrozole [Arimidex] 1 mg PO QAM 11/16/21 02/05/23 Trihexyphenidyl [Artane] 2 mg PO BID 12/27/21 02/05/23 amLODIPine [Norvasc] 5 mg PO BID 12/27/21 02/05/23 Abemaciclib [Verzenio] 150 mg PO QAM 02/05/23 02/05/23 Cholecalciferol [Vitamin D3 (125 125 mcg PO QAM 02/05/23 02/05/23 Mcg = 5000 Iu)] calcitrioL [Calcitriol] 0.5 mg PO QAM 02/05/23 02/05/23 Allergies Allergy/AdvReac Type Severity Reaction Status Date / Time No Known Allergies Allergy Verified 11/27/24 16:07 Review of Systems ROS Statement: Those systems with pertinent positive or pertinent negative responses have been documented in the HPI. ROS Other: All systems not noted in ROS Statement are negative. Past Medical History Past Medical History: Cancer, Diabetes Mellitus, Deep Vein Thrombosis (DVT), Hyperlipidemia Additional Past Medical History / Comment(s): Routine colonoscopy. NIDDM diet controlled, "body tremors, caused from one of medications", 10/23/20 LT dx breast invasive high grade ductal carcinoma(chemo 12/15/20-01/26/21), DVT 04/12/21 in L leg, History of Any Multi-Drug Resistant Organisms: None Reported Past Surgical History: Section, Cholecystectomy, Orthopedic Surgery, Tubal Ligation Additional Past Surgical History / Comment(s): LT lateral breast mastectomy and LT axilla biopsy 10/23/20, arthroscopy left knee Past Anesthesia/Blood Transfusion Reactions: Postoperative Nausea & Vomiting (PONV) Past Psychological History: Schizophrenia Smoking Status: Current every day smoker Past Alcohol Use History: None Reported Past Drug Use History: None Reported - Past Family History Mother Family Medical History: No Reported History General Exam Limitations: no limitations General appearance: alert, in no apparent distress Head exam: Present: atraumatic, normocephalic, normal inspection Respiratory exam: Present: normal lung sounds bilaterally. Absent: respiratory distress, wheezes, rales, rhonchi, stridor Cardiovascular Exam: Present: regular rate, normal rhythm Extremities exam: Present: other (Mild signs of venous stasis dermatitis to the left lower extremity with some calf tenderness. Full range of motion. 2+ DP and PT pulses.) Neurological exam: Present: alert, oriented X3, CN II-XII intact Psychiatric exam: Present: normal affect, normal mood Course Vital Signs 11/27/24 11/27/24 16:05 17:25 Temperature 98.1 F 98.0 F Pulse Rate 102 H 69 Respiratory 18 20 Rate Blood Pressure 125/79 106/72 O2 Sat by Pulse 98 99 Oximetry Medical Decision Making - Medical Decision Making This is a 59-year-old female who presents to the emergency department for left leg pain. Was pt. sent in by a medical professional or institution? @ -No Did you speak to anyone other than the patient for history? @ -No Did you review nursing and triage notes? @ -Yes, and I agree, it is accurate with regards to the patient's symptoms. Were old charts reviewed? @ -No Differential Diagnosis? @ -Differential Musculoskeletal Muscular strain, contusion, ligament sprain, fracture, arthritis, septic arthritis, bursitis, cellulitis, muscle spasm, nerve compression, DVT, arterial occlusion, herpes zoster, electrolyte abnormality, tumor.... This is not meant to be in all inclusive list EKG interpreted by me (3pts min.)? @ -Not obtained X-rays interpreted by me (1pt min.)? @ -Not obtained CT interpreted by me (1pt min.)? @ -Not obtained U/S interpreted by me (1pt. min.)? @ -Duplex ultrasound of the left lower extremity obtained. My interpretation identifies no evidence of an acute DVT. What testing was considered but not performed? (CT, X-rays, U/S, labs)? Why? @ -None What meds were considered but not given? Why? @ -None Did you discuss the management of the patient with other professionals? @ -No Did you reconcile home meds? @ -No Was smoking cessation discussed for >3mins.? @ -I discussed smoking cessation for greater than 3 minutes. The risk of smoking were discussed with the patient including but not limited to risks of cancer, stroke, coronary artery disease and COPD. Also discussed with patient were multiple methods of quitting smoking. Lastly we discussed the financial cost of smoking. Was critical care preformed (if so, how long)? @ -No Were there social determinants of health that impacted care today? How? (Homelessness, low income, unemployed, alcoholism, drug addiction, transportation, low edu. Level, literacy, decrease access to med. care, retirement, rehab)? @ -No Was there de-escalation of care discussed even if they declined? (Discuss DNR or withdrawal of care, Hospice)? @ -No What co-morbidities impacted this encounter? (DM, HTN, Smoking, COPD, CAD, Cancer, CVA, Hep., AIDS, mental health diagnosis, sleep apnea, morbid obesity)? @ -Smoking, DM Was patient admitted / discharged? @ -Discharged. Duplex ultrasound of the left lower extremity obtained revealing no evidence of an acute DVT. She was noted to have a probable chronic nonoccluding thrombus within the proximal popliteal vein. Findings reviewed with the patient. Because this is a chronic finding and she has no acute DVT, advised that we do not need to start anticoagulation at this point. She did have some discoloration to the distal aspect of the left lower extremity more consistent with venous stasis changes. We discussed elevation and compression. Advised follow-up with her primary care provider for reevaluation. Patient discharged home in stable condition. Case discussed with ED attending Dr. Roth. Return precautions reviewed in depth, the patient is instructed to return to the emergency department with any new, worsening, or concerning symptoms. Patient verbalized understanding. Undiagnosed new problem with uncertain prognosis? @ -None Drug Therapy requiring intensive monitoring for toxicity (Heparin, Nitro, Insulin, Cardizem)? @ -None Were any procedures done? @ -None Diagnosis/symptom? @ -Left leg pain, venous stasis changes Acute, or Chronic, or Acute on Chronic? @ -Acute Uncomplicated (without systemic symptoms) or Complicated (systemic symptoms)? @ -Uncomplicated Side effects of treatment? @ -None Exacerbation, Progression, or Severe Exacerbation] @ -Not applicable Poses a threat to life or bodily function? @ -No - Radiology Data Radiology results: report reviewed, image reviewed Disposition Clinical Impression: Chronic deep vein thrombosis of popliteal vein, Venous stasis dermatitis, Left leg pain, Nicotine dependence Disposition: HOME SELF-CARE Instructions (If sedation given, give patient instructions): Stasis Dermatitis (ED), Venous Insufficiency (DC) Additional Instructions: Return to the emergency department with any new, worsening, or concerning symptoms. The ultrasound showed a possible chronic nonocclusive clot in your leg. This should not be causing your current symptoms, however you will need to follow-up with your primary care provider to discuss these findings and if they would like you to proceed with any treatment. You can alternate with ibuprofen and Tylenol as needed for any discomfort in the meantime. You can also elevate the legs and use compression stockings. Is patient prescribed a controlled substance at d/c from ED?: No Referrals: Nonstaff,Physician [REFERRING] - 1-2 days Time of Disposition: 17:14
--- NOTE | 2024-11-27 17:01 | US ---
EXAMINATION TYPE: US venous doppler duplex LE LT DATE OF EXAM: 11/27/2024 4:50 PM COMPARISON: US CLINICAL INDICATION: Female, 59 years old with history of Leg pain and swelling, hx of DVT; Pt states left leg pain, h/o DVT left leg in 2020, currently not on blood thinners, Pain TECHNIQUE: The lower extremity deep venous system is examined utilizing real time linear array sonog janet with graded compression, color doppler sonography, and spectral doppler. SIDE PERFORMED: Left FINDINGS: VESSELS IMAGED: Common Femoral Vein Deep Femoral Vein Greater Saphenous Vein * Femoral Vein Popliteal Vein Small Saphenous Vein * Proximal Calf Veins (* superficial vessels) Left Leg: Negative for acute DVT, Color Doppler imaging shows patency of the vessels. Spectral wavef orms are within normal limits. Probable chronic, non-occluding thrombus within proximal popliteal ve in IMPRESSION: 1. No ultrasound evidence for deep venous thrombosis. 2. Likely chronic nonocclusive thrombus within the popliteal vein. Popliteal vein remains compressib le. [facility], , 11/27/2024 4:58 PM
[2024-11-27 17:26] VITALS: BP 106/72; PULSE 69; RESP 20; TEMP 98
== END 2024-11-27 17:47 | disposition home or self-care (01) ==
LOC: EC 16:03
DX: I82.532 Chronic embolism and thrombosis of left popliteal vein (principal); I87.2 Venous insufficiency (chronic) (peripheral); E11.9 Type 2 diabetes mellitus without complications; F17.200 Nicotine dependence, unspecified, uncomplicated
CPT/HCPCS: 99283

== ENCOUNTER → 2024-12-08 | Outpatient (CLI) | payer MEDICARE, OTHER ==
--- NOTE | 2024-12-08 13:46 | US ---
EXAMINATION TYPE: US venous doppler duplex LE LT DATE OF EXAM: 12/08/2024 1:29 PM COMPARISON: Left lower extremity venous ultrasound 11/27/2024, 02/25/2023, 06/05/2021, 04/12/2021 CLINICAL INDICATION: Female, 59 years old with history of M79.662 PAIN IN LEFT LOWER LEG; Recheck TECHNIQUE: The lower extremity deep venous system is examined utilizing real time linear array sonog janet with graded compression, color doppler sonography, and spectral doppler. SIDE PERFORMED: Left FINDINGS: VESSELS IMAGED: Common Femoral Vein Deep Femoral Vein Greater Saphenous Vein * Femoral Vein Popliteal Vein Small Saphenous Vein * Proximal Calf Veins (* superficial vessels) Left Leg: Appears negative for acute DVT, as seen on previous probable chronic thrombus within proxi mal popliteal vein. The popliteal vein is compressible. Remaining visualized veins demonstrate normal color flow with spectral venous waveforms and compressibility. IMPRESSION: 1. No evidence of acute deep vein thrombosis of the left lower extremity. 2. Chronic appearing nonocclusive thrombus within the proximal left popliteal vein again. [facility], , 12/08/2024 1:44 PM
== END | disposition home or self-care (01) ==
LOC: RADUSWWP 13:10
PROVIDERS: ATTEND Internal Medicine Pulmonary Disease
DX: I82.532 Chronic embolism and thrombosis of left popliteal vein (principal)